=== PATIENT | female | born 1935 | race Caucasian/White ===

== ENCOUNTER 2018-01-25 15:53 | Inpatient (IN) | payer OTHER, MEDICARE ==
[~2018-01-25] VITALS: Ht 170.2 cm; Wt 69.9 kg
[~2018-01-25 15:53] MED LIST: ABILIFY 10 MG10 MG PO; ABILIFY2 MG PO; ABILIFY5 M1 PO; ARIPIPRAZOLE2 MG PO; ARIPIPRAZOLE5 M1 PO; ASPIRIN EC81 M1 PO; CALCIUM + D 6001 TAB PO; CALCIUM 600600 M1 PO; CARBIDOPA-LEVO1 EAC7 PO; CIPRO250 M1 PO; CIPRO500 M1 PO; QUETIAPINE FUMA25 M1 PO; SEROQUEL 25MG25 MG PO; SEROQUEL25 M1 PO; SULFAMETHOXAZO1 EAC1 PO
--- NOTE | 2018-01-25 17:11 | ED CARDIAC/CP/PALPITATIONS ---
History of Present Illness General Chief Complaint: Lower Extremity Problems Stated Complaint: BILATERAL LEG SWELLING,TROUBLE WALKING PER DAUGHTE Source: patient, family, old records Exam Limitations: no limitations Vital Signs & Intake/Output Vital Signs & Intake/Output Vital Signs Date Time Temp Pulse Resp B/P B/P Pulse O2 O2 Flow FiO2 Mean Ox Delivery Rate 01/25 2051 98 Nasal 2.0L Cannula 01/25 1946 97.5 89 22 190/88 99 Nasal 2.0L Cannula 01/25 1817 98.4 87 22 212/01/25 1754 87 98 Nasal 2.0L Cannula 01/25 1608 98.4 83 22 154/90 97 Room Air Allergies Coded Allergies: Milk Containing Products (SEVERELY LACTOSE INTOLERANT 01/25/18) lactose (Severe, EXTREME DIARRHEA 01/09/16) Reconcile Medications Acetaminophen 500 MG TABLET 2 TAB PO PRN PAIN (Reported) Aripiprazole 5 MG TABLET 1 TAB PO QHS MENTAL HEALTH (Reported) Aripiprazole 2 MG TABLET 1 TAB PO QHS MENTAL HEALTH (Reported) Aspirin (Ecotrin*) 81 MG TABLET.DR 1 TAB PO DAILY HEART/BLOOD (Reported) Calcium (Elemental-Fr Calcarb) (Calcium) (Unknown Strength) TABLET (Unknown Dose) PO DAILY SUPPLEMENT (Reported) Calcium Carbonate/Vitamin D3 (Calcium 500 + D Tablet) (Unknown Strength) TABLET (Unknown Dose) PO DAILY SUPPLEMENT (Reported) Carbidopa/Levodopa (Carbidopa-Levodopa 25-100 Tab) 25 MG-100 MG TABLET 2 TAB PO QAM PARKINSONS (Reported) Carbidopa/Levodopa (Carbidopa-Levodopa 25-100 Tab) 25 MG-100 MG TABLET 1 TAB PO BID PARKINSONS (Reported) Ibuprofen (Advil) 200 MG TABLET 4 TAB PO TID PRN PAIN/INFLAMMATION (Reported) Lactase (Dairy Digest) 9,000 UNIT TABLET 3 TAB PO AD PRN LACTOSE INTOLERANCE (Reported) Loperamide HCl (Loperamide) 2 MG CAPSULE 2 CAP PO PRN LOOSE STOOLS (Reported) Mirtazapine (Remeron) 15 MG TABLET 1 TAB PO QHS MENTAL HEALTH (Reported) Quetiapine Fumarate 25 MG TABLET 1 TAB PO QHS SLEEP/MENTAL HEALTH (Reported) Simethicone (Mytab Gas) 80 MG TAB.CHEW 1-2 TAB PO AD PRN FLATULENCE (Reported ) Triage Note: 82F ARRIVES WITH DAUGHTER WITH MULTIPLE COMPLAINTS, REPORTING ILEOSACRAL PAIN RADIATING DOWN THE LEGS AND TAKING ADVIL/TYLENOL WITHOUT RELIEF. REPORTS SOB AND MUSA. SIGNIFICANT BLE SWELLING, PITTING 1+ RELIEF. UNABLE TO STAND OR WALK NOW. REPORTS SOB AND MUSA, DENIES COUGH. SIGNIFICANT BLE SWELLING, PITTING 2+ Triage Nurses Notes Reviewed? yes Onset: Gradual Duration: getting worse Timing: recent history Radiation: no radiation HPI: Patient is a 82-year-old female past medical history of depression osteoarthritis, LE, PARKINSONS symptoms, carotid stenosis and multiple falls who presents emergency room with multiple complaints, patient does state that she's had multiple months and chronic history of right-sided leg pain been complaining OF A 7 DAY duration of worsening leg swelling and shortness of breath and dyspnea on exertion. 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 No (Pete Ibarra) Review of Systems Review of Systems Constitutional: Reports: no symptoms. EENTM: Reports: no symptoms. Respiratory: Reports: see HPI, short of breath. Cardiovascular: Reports: see HPI, peripheral edema. Denies: chest pain. GI: Reports: see HPI, abdominal pain. Genitourinary: Reports: no symptoms. Musculoskeletal: Reports: see HPI, joint pain, muscle pain. Skin: Reports: no symptoms. Neurological/Psychological: Reports: no symptoms. Hematologic/Endocrine: Reports: no symptoms. Immunologic/Allergic: Reports: no symptoms. All Other Systems: Reviewed and Negative (Pete Ibarra) Physical Exam Physical Exam General Appearance: mild distress Head: atraumatic Eyes: Bilateral: normal appearance. Ears, Nose, Throat: normal ENT inspection, hearing grossly normal Neck: normal inspection Respiratory: quiet respiration, decreased breath sounds Cardiovascular: regular rate/rhythm, systolic murmur Gastrointestinal: normal bowel sounds, soft, tenderness Extremities: normal range of motion, pedal edema Skin: intact Core Measures ACS in differential dx? Yes CVA/TIA Diagnosis No Sepsis Present: No Sepsis Focused Exam Completed? No (Pete Ibarra) Progress Differential Diagnosis: AMI, aortic dissection, atrial fibrillation, cholecystitis, CHF/pulm edema, costochondritis, hyperkalemia, hypovolemia, hyperthyroid, hyperventilation, intracranial hemorrhage, musculoskeletal pain, myocarditis, pancreatitis, pericarditis, pneumonia, pneumothorax, PSVT, pulmonary embolism, PUD/GERD, PVCs/PACs, respiratory failure, rib fracture, sepsis, unstable angina, V-fib/V-Tach, WPW syndrome Plan of Care: Orders Procedure Date/time Status CULTURE,URINE 01/26 2112 Active BLOOD CULTURE 01/26 2112 Active URINALYSIS 01/26 2112 Active Add-on Test (ER Only) 01/26 2020 Active RAPID VIRAL INFLUENZA A 01/26 2020 Active LOWER RESPIRATORY CULTURE 01/26 2020 Active Patient Data 01/25 2013 Active Admit to inpatient 01/26 2008 Active EKG 01/25 1819 Active Add-on Test (ER Only) 01/25 173 Active Add-on Test (ER Only) 01/25 1712 Active D-DIMER 01/25 1712 Complete PARTIAL THROMBOPLASTIN TIME 01/25 1637 Complete PROTHROMBIN TIME 01/25 1637 Complete LACTIC ACID 01/25 1637 Complete TROPONIN LEVEL 01/25 1610 Complete COMPREHENSIVE METABOLIC PANEL 01/25 161 Complete CBC WITHOUT DIFFERENTIAL 01/25 1610 Complete B-TYPE NATRIURETIC PEP (BNP) 01/25 1610 Complete EKG 01/25 1610 Active Current Medications Sig/Kaye Start time Last Medication Dose Stop Time Status Admin Azithromycin 500 MG ONCE ONE 01/25 2030 AC (Zithromax) 01/25 2129 Dextrose/Water 250 ML (D5W) Laboratory Tests 01/25/18 1739: PT Cancelled, INR Cancelled, APTT Cancelled 01/25/18 1637: Anion Gap 12, Estimated GFR > 60, BUN/Creatinine Ratio 36.3 H, Glucose 159 H, Lactic Acid 1.6, Calcium 8.9, Total Bilirubin 0.5, AST 28, ALT 18, Alkaline Phosphatase 156 H, Troponin I 1.10 *H, Gpb-O-Mfyypypyiud Pept 36242 H, Total Protein 7.0, Albumin 3.5, Globulin 3.5, Albumin/Globulin Ratio 1.0 L, PT 11.3, INR 1.04, APTT 28, D-Dimer High Sensitivty 2278 H, CBC w Diff NO MAN DIFF REQ, RBC 3.12 L, MCV 89.6, MCH 29.8, MCHC 33.3, RDW 14.7 H, MPV 8.7, Gran % 75.8 H , Lymphocytes % 16.5 L, Monocytes % 5.3, Eosinophils % 2.0, Basophils % 0.4, Absolute Granulocytes 8.1 H, Absolute Lymphocytes 1.8, Absolute Monocytes 0.6, Absolute Eosinophils 0.2, Absolute Basophils 0 Microbiology 01/26 2112 URINE ROUT: Urine Culture - ORD 01/26 2112 BLOOD: Blood Culture - ORD 01/26 2112 BLOOD: Blood Culture - ORD 01/26 2020 NASOPHARYN: Influenza Virus A & B Rapid Smear - ORD 01/26 2020 LOWER RESP: Respiratory Culture - ORD 01/26 2020 LOWER RESP: Gram Stain - ORD Patient on initial presentation was noted to be in mild distress however she was given morphine which improved her symptoms, Patient does have concerns initially of hypertensive urgency due to patient's blood pressure patient also has complaints of shortness of breath and dyspnea on exertion and CHF is of my differentials patient was given Lasix for concerns of leg swelling elevated BNP and interstitial edema, patient also has critical findings of elevated troponin at 1.1 and discussed admission with Dr. Ku who was aware patient CT scan results shows no indication of palmar embolism however does show patchy infiltrates for concerns of pneumonia patient was given azithromycin and Rocephin, patient's ultrasounds were resulted no DVT due to persistent elevated blood pressure and troponin that Dr. Santos advised patient to be admitted to the ICU. No heparin was advised upon admission by cardiology or primary care doctor. Discussed admission with patient and family members were aware Diagnostic Imaging: Viewed by Me: CT Scan, Ultrasound. Radiology Impression: SEE COMMENTS Initial ED EKG: MOTION ARTIFACT, 84 BPM,SINUS RHYTHM Comments: PATIENT: SINCERE MCPHERSON PRESENT AGE: 82 PATIENT ACCOUNT NO: [id number] : 37 LOCATION: [facility] ORDERING PHYSICIAN: Pete GREENE SERVICE DATE: 01/25/18 EXAM TYPE: US - US-EXT BILAT VENOUS DOPPLER EXAMINATION: US TRIPLEX OF LOWER EXTREMITIES, BILATERAL CLINICAL INFORMATION: Edema, swelling COMPARISON: None TECHNIQUE: Color-flow triplex imaging with spectral analysis and compression Doppler were performed on the lower extremities. FINDINGS: Respiratory variation, normal compression and augmented flow are noted throughout the lower extremities. The visualized common femoral vein, superficial femoral vein, profunda femoral vein, popliteal vein and midcalf peroneal and posterior tibial venous segments show no evidence of deep venous thrombosis. There is no Alejandre's cyst. IMPRESSION: Some limitation the popliteal fossae here due to limited patient mobility. No convincing evidence for DVT. No suspicious fluid collection DICTATED BY: Juan Jimenez MD DATE/TIME DICTATED:01/25/182022 SCHOOL BUS TECHNICIAN:BRITTANI DATE/TIME TRANSCRIBED:01/25/18 PATIENT: SINCERE MCPHERSON PRESENT AGE: 82 PATIENT ACCOUNT NO: [id number] : 37 LOCATION: [facility] ORDERING PHYSICIAN: Pete GREENE SERVICE DATE: 01/25/18 EXAM TYPE: CAT - CT ABD & PELVIS W IV CONTRAST; CTA CHEST-PULMONARY EMBOLISM EXAMINATION: INDICATION: ELEVATED D-DIMER WITH SHORTNESS OF BREATH AND PAIN EXAMINATION: CONTRAST ENHANCED CT OF THE ABDOMEN PELVIS. PRE AND POSTCONTRAST CT, CTA CHEST. IMAGE POSTPROCESSING IS PERFORMED AND THESE IMAGES ARE REVIEWED AT AN INDEPENDENT WORKSTATION. 100 ML OPTIRAY [address] IS MADE [address] THE ABDOMEN PELVIS DATED 10/11/2017. FINDINGS: CT CHEST: THERE IS NO FILLING DEFECT HERE TO SUGGEST A PULMONARY EMBOLISM. CENTRALLY THERE IS NO BULKY ADENOPATHY. IMAGING LUNG GREEN. RIGHT LUNG; ILL-DEFINED PATCHY OPACITY RIGHT UPPER LUNG AND RIGHT BASE CONSISTENT WITH AREAS OF INFILTRATE. NODULE AT THE RIGHT BASE. IMAGE 38. MEASURES 4 MM. NODULE ON IMAGE 29. MEASURES 5 MM. SMALL EFFUSION ON THE RIGHT. LEFT LUNG; TRACE LEFT EFFUSION. MINIMAL LEFT BASILAR ATELECTASIS. THERE IS BRONCHIAL WALL THICKENING HERE. UPPER ABDOMEN STATUS POST CHOLECYSTECTOMY. LIVER AND SPLEEN ARE COMPARABLE TO PREVIOUS. REGION OF THE PANCREAS COMPARABLE TO PREVIOUS. THERE IS EVIDENCE OF DUCTAL DILATATION. PATIENT IS STATUS POST CHOLECYSTECTOMY. MILDLY INCREASED DUCTAL PROMINENCE FROM PREVIOUS. 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 NO FREE FLUID. NO BULKY ADENOPATHY. THE BOWEL PATTERN IS NONOBSTRUCTING. THE AORTA IS CALCIFIED. NOT ANEURYSMAL. THE KIDNEYS ARE IN THE NEPHROGRAPHIC PHASE. IN THE PELVIS THERE IS NO FREE FLUID. PALMA CATHETER WITHIN THE BLADDER. BOWEL PATTERN IS WITHIN NORMAL LIMITS. THERE IS NO BULKY ADENOPATHY. THERE IS INCREASING COMPRESSION AT D12 FROM PREVIOUS. THERE IS FAIRLY GOOD PRESERVATION OF POSTERIOR HEIGHT BUT THERE IS SOME RETROPULSION OF BONE INTO THE CANAL BY APPROXIMATELY 5 MM IMPRESSION: NO FILLING DEFECT TO SUGGEST A PULMONARY EMBOLISM. Patchy areas of infiltrate right midlung and right base. Small effusion on the right. Trace effusion on left. Small nodularity on the right. Recommendation is noncontrast low-dose study in 6-9 months for continued evaluation In the abdomen pelvis Palma catheter within the bladder. No acute finding here. No suspicious fluid collection. Status post cholecystectomy. Prominent ductal system. Correlation recommended clinically. This is mildly increased from previous. If indicated consider MRCP. Ongoing compression at D12 with some retropulsion of bone into the region of the canal. Correlate clinically. MR if indicated. Coronary calcifications are noted DICTATED BY: Juan Jimenez MD DATE/TIME DICTATED:01/25/181999 SCHOOL BUS TECHNICIAN:BRITTANI DATE/TIME TRANSCRIBED:01/25/181999 PATIENT: SINCERE MCPHERSON PRESENT AGE: 82 PATIENT ACCOUNT NO: [id number] : 37 LOCATION: [facility] ORDERING PHYSICIAN: Pete GREENE SERVICE DATE: 01/25/18 EXAM TYPE: RAD - XRY-CHEST XRAY, SINGLE VIEW EXAMINATION:\H\ \N\XR CHEST CLINICAL INFORMATION: Shortness of breath COMPARISON: 04/25/2017 TECHNIQUE: Frontal view of the chest was obtained. FINDINGS: Overall increased interstitial pattern. Findings suggest interstitial edema. Probable trace effusions bilaterally. IMPRESSION: Findings are most consistent with interstitial edema. Trace effusions DICTATED BY: Juan Jimenez MD DATE/TIME DICTATED:01/25/181714 SCHOOL BUS TECHNICIAN:MONTANA DATE/TIME TRANSCRIBED:01/25/181714 (Ptee Ibarra) Departure Departure Disposition: STILL A PATIENT Condition: Guarded Clinical Impression Primary Impression: Hypertensive urgency Secondary Impressions: CHF (congestive heart failure), Elevated troponin, Pneumonia Referrals: Clint Cook MD (PCP/Family) Departure Forms: Customer Survey General Discharge Information Admission Note Spoke With: Clint Cook MD Documentation of Exam: Documentation of any treatments & extenuating circumstances including Concerns Regarding Discharge (functional status, medication knowledge or non-compliance, living conditions, etc.) that warrant an admission rather than observation: [ Patient requires ] (Pete Ibarra) PA/PERSONNEL COORDINATOR Co-Sign Statement Statement: ED Attending supervision documentation- [X] I saw and evaluated the patient. I have also reviewed all the pertinent lab results and diagnostic results. I agree with the findings and the plan of care as documented in the PA's/PERSONNEL COORDINATOR's documentation. [] I have reviewed the ED Record and agree with the PA's/PERSONNEL COORDINATOR's documentation. [] Additions or exceptions (if any) to the PAs/PERSONNEL COORDINATOR's note and plan are summarized below: [] I have seen and personally examined the patient and I agree with the PAs evaluation. She presents with lower extremity weakness and swelling. She has a positive troponin with nonspecific EKG changes. She has significant blood pressure elevation and will be admitted to the ICU for further care. (Juan Murcia DO) PA/PERSONNEL COORDINATOR Co-Sign Statement Statement: ED Attending supervision documentation- [x] I saw and evaluated the patient. I have also reviewed all the pertinent lab results and diagnostic results. I agree with the findings and the plan of care as documented in the PA's/PERSONNEL COORDINATOR's documentation. Pt's care turned over to me. 01/25/18, 21:14... well appearing in ED... benign exam... pt merits icu level monitoring for hypertensive urgency. [] I have reviewed the ED Record and agree with the PA's/PERSONNEL COORDINATOR's documentation. [] Additions or exceptions (if any) to the PAs/PERSONNEL COORDINATOR's note and plan are summarized below: [] (Noe FLOWER,Kayden Trujillo) Critical Care Note Critical Care Note Critical Care Time: 75-104 min (Pete Ibarra)
[2018-01-25 17:12] LABS: ABSOLUTE BASOPHIL COUNT 0 /CUMM (0.0-0.2); ABSOLUTE EOSINOPHIL COUNT 0.2 /CUMM (0.0-0.7); ABSOLUTE GRANULOCYTE CT 8.1 /CUMM (1.4-6.5); ABSOLUTE LYMPH COUNT 1.8 /CUMM (1.2-3.4); ABSOLUTE MONOCYTE COUNT 0.6 /CUMM (0.10-0.60); BASOPHIL % 0.4 % (0.0-2.0); GRANULOCYTE % 75.8 % (42.2-75.2); HEMATOCRIT 27.9 % (37-47); MEAN CORPUSCULAR HGB 29.8 PG (27.0-31.0); MEAN CORPUSCULAR HGB CONC 33.3 G/DL (33.0-37.0); MEAN CORPUSCULAR VOLUME 89.6 FL (81.0-99.0); MEAN PLATELET VOLUME 8.7 FL (7.4-10.4); PLATELET COUNT 354 /CUMM (130-400); RBC DISTRIBUTION WIDTH 14.7 % (11.5-14.5); RED BLOOD CELL CT 3.12 /CUMM (4.20-5.40); WHITE BLOOD CELL COUNT 10.7 /CUMM (4.8-10.8)
--- NOTE | 2018-01-25 17:19 | RADIOLOGY REPORT ---
EXAMINATION:\H\ \N\XR CHEST CLINICAL INFORMATION: Shortness of breath COMPARISON: 04/25/2017 TECHNIQUE: Frontal view of the chest was obtained. FINDINGS: Overall increased interstitial pattern. Findings suggest interstitial edema. Probable trace effusions bilaterally. IMPRESSION: Findings are most consistent with interstitial edema. Trace effusions
[2018-01-25 17:55] LABS: PT 11.3 SEC (9.4-12.5); PTT 28 SEC (25-37)
[2018-01-25] MEDS ORDERED: LOPERAMIDE2 M2 PO (18:23)
[2018-01-25] MEDS ORDERED: CALCIUM 500 +1 EAC5 PO (18:23)
[2018-01-25] MEDS ORDERED: REMERON15 M2 PO (18:24)
[2018-01-25] MEDS ORDERED: MYTAB GAS80 M1 PO (18:25)
[2018-01-25] MEDS ORDERED: DAIRY DIGES9000 UNI1 PO (18:25)
[2018-01-25] MEDS ORDERED: ADVIL200 M2 PO (18:27)
[2018-01-25] MEDS ORDERED: ACETAMINOPHEN500 M4 PO (18:27)
[2018-01-25] MEDS ORDERED: CALCIUM600 M3 PO (18:28)
--- NOTE | 2018-01-25 19:57 | Admission Certification ---
Admission Certification Certification Statement - As attending physician, I certify that at the time of - admission, based on clinical presentation, severity of - symptoms, need for further diagnostic testing and - therapeutic interventions, and risk of adverse outcomes - without in-hospital treatment, in my clinical assessment, - this patient requires an acute hospital stay for a minimum - of two nights or longer. I have also considered psychsocial - factors such as support system, advanced age, financial - issues, cognitive issues, and failed out-patient treatments, - past re-admission history, safety of patient, and lack of - compliance as applicable. Specific rationale supporting this admission is: Bilateral leg edema, difficulty walking, elevated troponin, EKG changes elevated d-dimer
--- NOTE | 2018-01-25 20:00 | PN- Att Addend ---
Attending Addendum Attending Brief Note 82-year-old white female having trouble walking. Daughter getting progressively worse originally she was using a cane than a walker the last 1 or 2 days hardly able to walk some leg edema no apparent chest pain comes to the ER in no respiratory distress, her blood pressure is high she has to leg edema maybe some EKG changes in the inferior leads, elevated troponin, elevated d-dimer elevated white count. Patient's chest x-ray showed some interstitial fluid. Patient had a CTA of the chest and leg ultrasounds the results are pending her cardiology was called for consult will admit and if necessary anticoagulate. Current Medications Sig/Kaye Start time Last Medication Dose Route Stop Time Status Admin Furosemide 0 .STK-MED ONE 01/25 1810 DC IV Furosemide 20 MG ONCE ONE 01/25 1745 DC 01/25 IV 01/25 1746 1800 Labetalol HCl 0 .STK-MED ONE 01/25 181 DC IV Labetalol HCl 10 MG ONCE ONE 01/25 1800 DC 01/25 IV 01/25 1801 1817 Morphine Sulfate 0 .STK-MED ONE 01/25 181 DC .ROUTE Morphine Sulfate 4 MG ONCE ONE 01/25 1745 DC 01/25 IV 01/25 174 1817 Laboratory Tests 01/25/18 1739: PT Cancelled, INR Cancelled, APTT Cancelled 01/25/18 1637: Anion Gap 12, Estimated GFR > 60, BUN/Creatinine Ratio 36.3 H, Glucose 159 H, Calcium 8.9, Total Bilirubin 0.5, AST 28, ALT 18, Alkaline Phosphatase 156 H, Troponin I 1.10 *H, Mlo-P-Ezcymxdeanz Pept 54701 H, Total Protein 7.0, Albumin 3.5, Globulin 3.5, Albumin/Globulin Ratio 1.0 L, PT 11.3, INR 1.04, APTT 28, D- Dimer High Sensitivty 2278 H, CBC w Diff NO MAN DIFF REQ, RBC 3.12 L, MCV 89.6 , MCH 29.8, MCHC 33.3, RDW 14.7 H, MPV 8.7, Gran % 75.8 H, Lymphocytes % 16.5 L, Monocytes % 5.3, Eosinophils % 2.0, Basophils % 0.4, Absolute Granulocytes 8.1 H, Absolute Lymphocytes 1.8, Absolute Monocytes 0.6, Absolute Eosinophils 0.2, Absolute Basophils 0 Vital Signs Date Time Temp Pulse Resp B/P B/P Pulse O2 O2 Flow FiO2 Mean Ox Delivery Rate 01/25 1946 97.5 89 22 190/88 99 Nasal 2.0L Cannula 01/25 181 98.4 87 22 212/92 01/25 1754 87 212 98 Nasal 2.0L Cannula 01/25 1608 98.4 83 22 154/90 97 Room Air
--- NOTE | 2018-01-25 20:15 | CT SCAN REPORT ---
EXAMINATION: INDICATION: ELEVATED D-DIMER WITH SHORTNESS OF BREATH AND PAIN EXAMINATION: CONTRAST ENHANCED CT OF THE ABDOMEN PELVIS. PRE AND POSTCONTRAST CT, CTA CHEST. IMAGE POSTPROCESSING IS PERFORMED AND THESE IMAGES ARE REVIEWED AT AN INDEPENDENT WORKSTATION. 100 ML OPTIRAY 300 COMPARISON IS MADE TO CT THE ABDOMEN PELVIS DATED 10/11/2017. FINDINGS: CT CHEST: THERE IS NO FILLING DEFECT HERE TO SUGGEST A PULMONARY EMBOLISM. CENTRALLY THERE IS NO BULKY ADENOPATHY. IMAGING LUNG GREEN. RIGHT LUNG; ILL-DEFINED PATCHY OPACITY RIGHT UPPER LUNG AND RIGHT BASE CONSISTENT WITH AREAS OF INFILTRATE. NODULE AT THE RIGHT BASE. IMAGE 38. MEASURES 4 MM. NODULE ON IMAGE 29. MEASURES 5 MM. SMALL EFFUSION ON THE RIGHT. LEFT LUNG; TRACE LEFT EFFUSION. MINIMAL LEFT BASILAR ATELECTASIS. THERE IS BRONCHIAL WALL THICKENING HERE. UPPER ABDOMEN STATUS POST CHOLECYSTECTOMY. LIVER AND SPLEEN ARE COMPARABLE TO PREVIOUS. REGION OF THE PANCREAS COMPARABLE TO PREVIOUS. THERE IS EVIDENCE OF DUCTAL DILATATION. PATIENT IS STATUS POST CHOLECYSTECTOMY. MILDLY INCREASED DUCTAL PROMINENCE FROM PREVIOUS. 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 NO FREE FLUID. NO BULKY ADENOPATHY. THE BOWEL PATTERN IS NONOBSTRUCTING. THE AORTA IS CALCIFIED. NOT ANEURYSMAL. THE KIDNEYS ARE IN THE NEPHROGRAPHIC PHASE. IN THE PELVIS THERE IS NO FREE FLUID. PALMA CATHETER WITHIN THE BLADDER. BOWEL PATTERN IS WITHIN NORMAL LIMITS. THERE IS NO BULKY ADENOPATHY. THERE IS INCREASING COMPRESSION AT D12 FROM PREVIOUS. THERE IS FAIRLY GOOD PRESERVATION OF POSTERIOR HEIGHT BUT THERE IS SOME RETROPULSION OF BONE INTO THE CANAL BY APPROXIMATELY 5 MM IMPRESSION: NO FILLING DEFECT TO SUGGEST A PULMONARY EMBOLISM. Patchy areas of infiltrate right midlung and right base. Small effusion on the right. Trace effusion on left. Small nodularity on the right. Recommendation is noncontrast low-dose study in 6-9 months for continued evaluation In the abdomen pelvis Palma catheter within the bladder. No acute finding here. No suspicious fluid collection. Status post cholecystectomy. Prominent ductal system. Correlation recommended clinically. This is mildly increased from previous. If indicated consider MRCP. Ongoing compression at D12 with some retropulsion of bone into the region of the canal. Correlate clinically. MR if indicated. Coronary calcifications are noted
--- NOTE | 2018-01-25 20:27 | ULTRASOUND REPORT ---
EXAMINATION: US TRIPLEX OF LOWER EXTREMITIES, BILATERAL CLINICAL INFORMATION: Edema, swelling COMPARISON: None TECHNIQUE: Color-flow triplex imaging with spectral analysis and compression Doppler were performed on the lower extremities. FINDINGS: Respiratory variation, normal compression and augmented flow are noted throughout the lower extremities. The visualized common femoral vein, superficial femoral vein, profunda femoral vein, popliteal vein and midcalf peroneal and posterior tibial venous segments show no evidence of deep venous thrombosis. There is no Alejandre's cyst. IMPRESSION: Some limitation the popliteal fossae here due to limited patient mobility. No convincing evidence for DVT. No suspicious fluid collection
--- NOTE | 2018-01-25 22:03 | History & Physical ---
See Addendum General Information and HPI History of Present Illness: 82 year old woman with past medical history of HFpEF, mild/mod Aortic stenosis, depression, anxiety, osteoarthritis, carotid stenosis, drug induced parkinsonianism, and multiple falls seen for evaluation of lower extremity swelling and shortness of breath. Patients family members are present during the interview and offer collateral information. They report that their family member has been moving slowly over the past several months. She was previously ambulating independently but has slowly progressed to cane, now using a walker. She "barely moves anymore". Over the past week she reports lower extremity pain and swelling that is new. She also admits to waking up several times over the past week with bandlike chest discomfort that is short lived and gone by morning. She does admit to some persistent mild shortness of breath. Otherwise she denies any fever, chills, headache, lightheadedness, dizziness, current chest pain, palpitations, orthopnea, nausea, vomiting, diarrhea. Allergies/Medications Allergies: Coded Allergies: Milk Containing Products (SEVERELY LACTOSE INTOLERANT 01/25/18) lactose (Severe, EXTREME DIARRHEA 01/09/16) Home Med list Acetaminophen 500 MG TABLET 2 TAB PO PRN PAIN (Reported) Aripiprazole 5 MG TABLET 1 TAB PO QHS MENTAL HEALTH (Reported) Aripiprazole 2 MG TABLET 1 TAB PO QHS MENTAL HEALTH (Reported) Aspirin (Ecotrin*) 81 MG TABLET.DR 1 TAB PO DAILY HEART/BLOOD (Reported) Calcium (Elemental-Fr Calcarb) (Calcium) (Unknown Strength) TABLET (Unknown Dose) PO DAILY SUPPLEMENT (Reported) Calcium Carbonate/Vitamin D3 (Calcium 500 + D Tablet) (Unknown Strength) TABLET (Unknown Dose) PO DAILY SUPPLEMENT (Reported) Carbidopa/Levodopa (Carbidopa-Levodopa 25-100 Tab) 25 MG-100 MG TABLET 2 TAB PO QAM PARKINSONS (Reported) Carbidopa/Levodopa (Carbidopa-Levodopa 25-100 Tab) 25 MG-100 MG TABLET 1 TAB PO BID PARKINSONS (Reported) Ibuprofen (Advil) 200 MG TABLET 4 TAB PO TID PRN PAIN/INFLAMMATION (Reported) Lactase (Dairy Digest) 9,000 UNIT TABLET 3 TAB PO AD PRN LACTOSE INTOLERANCE (Reported) Loperamide HCl (Loperamide) 2 MG CAPSULE 2 CAP PO PRN LOOSE STOOLS (Reported) Mirtazapine (Remeron) 15 MG TABLET 1 TAB PO QHS MENTAL HEALTH (Reported) Quetiapine Fumarate 25 MG TABLET 1 TAB PO QHS SLEEP/MENTAL HEALTH (Reported) Simethicone (Mytab Gas) 80 MG TAB.CHEW 1-2 TAB PO AD PRN FLATULENCE (Reported ) Past History Travel History Traveled to [place] past 21 day No Medical History Neurological: Parkinson's disease EENT: NONE Cardiovascular: NONE Respiratory: NONE Gastrointestinal: NONE Hepatic: NONE Renal: NONE Musculoskeletal: osteoarthritis Psychiatric: anxiety, depression Endocrine: NONE Blood Disorders: NONE Cancer(s): NONE 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 Ambulation: cane (ocassionally) IADLs Independent: shopping, housework, food prep, telephone, medication admin. Needs Assist: finances, transportation. Review of Systems Review of Systems Constitutional: Reports: see HPI. Exam & Diagnostic Data Last 24 Hrs of Vital Signs/I&O Vital Signs Date Time Temp Pulse Resp B/P B/P Pulse O2 O2 Flow FiO2 Mean Ox Delivery Rate 01/25 2257 97.9 75 18 160/75 96 Nasal 2.0L Cannula 01/25 2100 97.5 89 22 190/88 01/25 2051 98 Nasal 2.0L Cannula 01/25 1946 97.5 89 22 190/88 99 Nasal 2.0L Cannula 01/25 1817 98.4 87 22 212/92 01/25 1754 87 22 212/92 98 Nasal 2.0L Cannula 01/25 1608 98.4 83 22 154/90 97 Room Air Intake & Output 01/26 0800 01/26 0000 01/25 1600 Intake Total Output Total 1750 Balance -1750 Output, Urine 1750 Physical Exam General Appearance Alert, Oriented X3, Cooperative, No Acute Distress Skin No Rashes, No Breakdown, No Significant Lesion Skin Temp/Moisture Exam: Warm/Dry Sepsis Skin Exam (color): Normal for Ethnicity HEENT Atraumatic, PERRLA, EOMI, Mucous Membr. moist/pink Cardiovascular Regular Rate, 3/6 SHANON Lungs Normal Air Movement, diminished right lobe airflow with scatter rhonchi, no crackles Abdomen Normal Bowel Sounds, Soft, No Tenderness, No Hepatospenomegaly, No Masses Neurological Normal Speech, Strength at 5/5 X4 Ext, Normal Tone, Sensation Intact, Cranial Nerves 3-12 NL Extremities No Clubbing, No Cyanosis, Normal Pulses, 3+ bilateral lower extremity pitting edema with mild erythema Vascular Normal Pulses, Pulses Symmetrical Last 24 Hrs of Labs/Zeeshan: Laboratory Tests 01/25/182214: Troponin I 1.03 *H 01/25/182119: Urine Color YEL, Urine Clarity CLEAR, Urine pH 6.0, Ur Specific [place] 1.010, Urine Protein NEG, Urine Ketones NEG, Urine Nitrite NEG, Urine Bilirubin NEG, Urine Urobilinogen 0.2, Ur Leukocyte Esterase NEG, Ur Microscopic EXAM NOT REQUIRED, Urine Hemoglobin NEG, Urine Glucose NEG 01/25/18 1739: PT Cancelled, INR Cancelled, APTT Cancelled 01/25/18 1637: Anion Gap 12, Estimated GFR > 60, BUN/Creatinine Ratio 36.3 H, Glucose 159 H, Lactic Acid 1.6, Calcium 8.9, Total Bilirubin 0.5, AST 28, ALT 18, Alkaline Phosphatase 156 H, Troponin I 1.10 *H, Xfm-A-Rhlhxbpyyzl Pept 27689 H, Total Protein 7.0, Albumin 3.5, Globulin 3.5, Albumin/Globulin Ratio 1.0 L, PT 11.3, INR 1.04, APTT 28, D-Dimer High Sensitivty 2278 H, CBC w Diff NO MAN DIFF REQ, RBC 3.12 L, MCV 89.6, MCH 29.8, MCHC 33.3, RDW 14.7 H, MPV 8.7, Gran % 75.8 H , Lymphocytes % 16.5 L, Monocytes % 5.3, Eosinophils % 2.0, Basophils % 0.4, Absolute Granulocytes 8.1 H, Absolute Lymphocytes 1.8, Absolute Monocytes 0.6, Absolute Eosinophils 0.2, Absolute Basophils 0 Microbiology 01/25 2200 BLOOD: Blood Culture - RECD 01/25 2145 BLOOD: Blood Culture - RECD 01/25 2122 NASOPHARYN: Influenza Virus A & B Rapid Smear - COMP 01/26 2120 URINE ROUT: Urine Culture - RECD 01/26 2020 LOWER RESP: Respiratory Culture - ORD 01/26 2020 LOWER RESP: Gram Stain - ORD Assessment/Plan Assessment: 82 year old woman with multiple medical problems significant for HFpEF, Aortic stenosis, and parkinsonianism seen for evaluation of lower extremity swell and shortness of breath. ED Course -Vitals: Temp 97.5-98.4, HR 83-89, RR 22, SBP 154-212, O2 97-99% on 2.0L via NC -CBC: WBC 10.7, Hgb 9.3, Hct 27.9, Plt 354 -BMP: Na 144, K 3.9, Cl 106, CO2 26, BUN 29, Cr 0.8, AG 12, Glu 159 -LFT: WNL -Misc: Troponin I 1.10, BNP 11,900, DDimer 2278, INR 1.04, Lactic acid 1.6 -CXR: interstitial edema -LE Doppler: no DVT -CTA Chest / Abdomen / Pelvis: no VTE, right lung infiltrate, trace bilateral effusion -EKG: NSR without ST segment changes Patients shortness of breath and lower extremity swelling appear to be due to patients known diastolic heart failure with probably worsened aortic stenosis. She has a loud systolic ejection murmur; repeat echo is to be assessed. Elevated troponin is most likely due to demand ischemia, EKG is unremarkable and patient has no current chest pain. She is likely preload dependent and should not be aggressively diuresed. Her blood pressure has returned to acceptable range. There is concern for right lobe pneumonia on imaging for which she is being covered. Problem List -Community Acquire Pneumonia -Hypertensive urgency -HFpEF exacerbation -Mild/moderate Aortic Stenosis -Elevated troponin, likely demand -History of drug induced parkinsonianism -Depression / Anxiety -Carotid stenosis -Osteoarthritis Plan -Admit to telemetry -Monitor on telemetry -Strict I & Os, daily weights -TRC with Nebs PRN -Supplemental oxygen, goal > 92%, taper as tolerated -Avoid further preload reduction -No Heparin -Start Aspirin 81 mg PO Daily -Ceftriaxone 1 g IV Daily -Azithromycin 500 mg IV Daily -Cardiology consult with Dr Nice for troponin, HFpEF, -Blood/Urine/Sputum -Trend troponin / EKG until peak or three negative sets -Repeat echocardiogram -Pain control with acetaminophen -Heart Healthy Diet -DVT PPx with lovenox -FULL CODE As Ranked By This Provider Problem List: 1. Chest pain 2. Hypertensive urgency Core Measures/Misc (07/23) Acute Coronary Syndrome ACS Diagnosis: No Congestive Heart Failure Congestive Heart Failure Diagnosis Yes Last Known EF % 65 Cerebrovascular Accident CVA/TIA Diagnosis: No VTE (View Protocol) VTE Risk Factors Age>40 No Mechanical VTE Prophylaxis d/t N/A MechProphylax Ordered No VTE Pharm Prophylaxis d/t NA PharmProphylax ordered Sepsis (View protocol) Sepsis Present: No
[2018-01-26 00:30] VITALS: BP 130/62
[2018-01-26 05:38] LABS: ABSOLUTE BASOPHIL COUNT 0.1 /CUMM (0.0-0.2); ABSOLUTE EOSINOPHIL COUNT 0.4 /CUMM (0.0-0.7); ABSOLUTE GRANULOCYTE CT 5.1 /CUMM (1.4-6.5); ABSOLUTE MONOCYTE COUNT 0.5 /CUMM (0.10-0.60); BASOPHIL % 0.8 % (0.0-2.0); EOSINOPHIL % 5.1 % (0-5); GRANULOCYTE % 63.4 % (42.2-75.2); HEMATOCRIT 24.9 % (37-47); MEAN CORPUSCULAR HGB 29.9 PG (27.0-31.0); MEAN CORPUSCULAR HGB CONC 33.5 G/DL (33.0-37.0); MEAN CORPUSCULAR VOLUME 89.5 FL (81.0-99.0); MEAN PLATELET VOLUME 8.6 FL (7.4-10.4); PLATELET COUNT 306 /CUMM (130-400); RBC DISTRIBUTION WIDTH 14.6 % (11.5-14.5); RED BLOOD CELL CT 2.79 /CUMM (4.20-5.40); WHITE BLOOD CELL COUNT 8.1 /CUMM (4.8-10.8)
[2018-01-26 06:30] VITALS: BP 116/64
--- NOTE | 2018-01-26 07:25 | PN- Housestaff ---
See Addendum Subjective Follow-up For: Hypertensive emergency Elevated troponins Upper respiratory infection Subjective: Seen and examined Offers no complaints. Reports sleeping well. She did have hip and back pain. Review of Systems Constitutional: Reports: see HPI. Objective Last 24 Hrs of Vital Signs/I&O Vital Signs Date Time Temp Pulse Resp B/P B/P Pulse O2 O2 Flow FiO2 Mean Ox Delivery Rate 01/26 0100 95 Nasal 2.0L Cannula 01/26 0030 98.2 75 20 130/62 98 01/25 2257 97.9 75 18 160/75 96 Nasal 2.0L Cannula 01/25 2100 97.5 89 22 190/88 01/25 2051 98 Nasal 2.0L Cannula 01/25 1946 97.5 89 22 190/88 99 Nasal 2.0L Cannula 01/25 1817 98.4 87 22 212/92 01/25 1754 87 22 212/ 98 Nasal 2.0L Cannula 01/25 1608 98.4 83 22 154/90 97 Room Air Intake & Output 01/26 0800 01/26 0000 01/25 1600 Intake Total Output Total 1750 Balance -1750 Output, Urine 1750 Patient 64.41 kg Weight Weight Bed scale Measurement Method Physical Exam General Appearance: Alert, Cooperative, No Acute Distress Skin: No Rashes, No Breakdown Skin Temp/Moisture Exam: Warm/Dry HEENT: Atraumatic, PERRLA Neck: Supple, No JVD Cardiovascular: Normal S1, Normal S2, loud systolic murmur in aortic, pulmonic, tricuspid areas. Lungs: Clear to Auscultation, Normal Air Movement Abdomen: Normal Bowel Sounds, Soft, No Tenderness Neurological: Normal Speech, Normal Tone, Sensation Intact Extremities: No Clubbing, No Cyanosis Vascular: Normal Pulses Current Medications: Current Medications Sig/Kaye Start time Last Medication Dose Route Stop Time Status Admin Acetaminophen 1,000 MG Q6P PRN 01/25 2200 AC 01/26 IV 1303 Aripiprazole 5 MG QPM 01/26 2200 AC PO Aripiprazole 2 MG QPM 01/25 2230 AC 01/25 PO 2305 Aspirin 81 MG DAILY 01/26 1000 AC 01/26 PO 0839 Azithromycin 500 MG DAILY@2300 01/26 2300 CAN Dextrose/Water 250 ML IV Azithromycin 500 MG ONCE ONE 01/25 2030 DC 01/25 Dextrose/Water 250 ML IV 01/25 2129 225 Carbidopa/Levodopa 1 TAB 1400,1800 01/26 1409 AC PO Carbidopa/Levodopa 2 TAB QAM 01/26 1000 AC 01/26 PO 1139 Ceftriaxone Sodium 1,000 MG DAILY@2300 01/26 2300 CAN IV Ceftriaxone Sodium 0 .STK-MED ONE 01/25 2249 DC .ROUTE Ceftriaxone Sodium 1,000 MG ONCE ONE 01/25 2030 DC 01/25 IV 01/25 2031 2251 Cefuroxime Sodium 250 MG Q12 01/26 2200 AC PO Enalaprilat 0 .STK-MED ONE 01/25 2123 DC IV Enalaprilat 1.25 MG ONCE ONE 01/25 2030 DC 01/25 IV 01/25 2031 2100 Enoxaparin Sodium 40 MG DAILY 01/26 1000 AC 01/26 SC 0839 Furosemide 0 .STK-MED ONE 01/25 1810 DC IV Furosemide 20 MG ONCE ONE 01/25 1745 DC 01/25 IV 01/25 174 1800 Labetalol HCl 0 .STK-MED ONE 01/25 181 DC IV Labetalol HCl 10 MG ONCE ONE 01/25 1800 DC 01/25 IV 01/25 1801 1817 Mirtazapine 15 MG QPM 01/26 2200 AC PO Morphine Sulfate 0 .STK-MED ONE 01/25 181 DC .ROUTE Morphine Sulfate 4 MG ONCE ONE 01/25 1745 DC 01/25 IV 01/25 174 1817 Quetiapine Fumarate 25 MG QPM 01/25 2230 AC 01/25 PO 2305 Last 24 Hrs of Lab/Zeeshan Results Last 24 Hrs of Labs/Mics: Laboratory Tests 01/26/18 0445: Anion Gap 12, Estimated GFR > 60, BUN/Creatinine Ratio 24.4, Troponin I 0.77 *H, CBC w Diff NO MAN DIFF REQ, RBC 2.79 L, MCV 89.5, MCH 29.9, MCHC 33.5, RDW 14.6 H, MPV 8.6, Gran % 63.4, Lymphocytes % 24.3, Monocytes % 6.4, Eosinophils % 5.1 H, Basophils % 0.8, Absolute Granulocytes 5.1, Absolute Lymphocytes 2.0, Absolute Monocytes 0.5, Absolute Eosinophils 0.4, Absolute Basophils 0.1 01/25/182214: Troponin I 1.03 *H 01/25/182119: Urine Color YEL, Urine Clarity CLEAR, Urine pH 6.0, Ur Specific [place] 1.010, Urine Protein NEG, Urine Ketones NEG, Urine Nitrite NEG, Urine Bilirubin NEG, Urine Urobilinogen 0.2, Ur Leukocyte Esterase NEG, Ur Microscopic EXAM NOT REQUIRED, Urine Hemoglobin NEG, Urine Glucose NEG 01/25/18 1739: PT Cancelled, INR Cancelled, APTT Cancelled 01/25/18 1637: Anion Gap 12, Estimated GFR > 60, BUN/Creatinine Ratio 36.3 H, Glucose 159 H, Lactic Acid 1.6, Calcium 8.9, Total Bilirubin 0.5, AST 28, ALT 18, Alkaline Phosphatase 156 H, Troponin I 1.10 *H, Uhu-B-Xxywejtufvw Pept 61163 H, Total Protein 7.0, Albumin 3.5, Globulin 3.5, Albumin/Globulin Ratio 1.0 L, PT 11.3, INR 1.04, APTT 28, D-Dimer High Sensitivty 2278 H, CBC w Diff NO MAN DIFF REQ, RBC 3.12 L, MCV 89.6, MCH 29.8, MCHC 33.3, RDW 14.7 H, MPV 8.7, Gran % 75.8 H , Lymphocytes % 16.5 L, Monocytes % 5.3, Eosinophils % 2.0, Basophils % 0.4, Absolute Granulocytes 8.1 H, Absolute Lymphocytes 1.8, Absolute Monocytes 0.6, Absolute Eosinophils 0.2, Absolute Basophils 0 Microbiology 01/25 2200 BLOOD: Blood Culture - RES 01/25 2145 BLOOD: Blood Culture - RES 01/25 2122 NASOPHARYN: Influenza Virus A & B Rapid Smear - COMP 01/26 2120 URINE ROUT: Urine Culture - RES 01/26 2020 LOWER RESP: Respiratory Culture - CAN Cancelled: NO SAMPLE COLLECTTED 01/26 2020 LOWER RESP: Gram Stain - CAN Cancelled: NO SAMPLE COLLECTTED Assessment/Plan Assessment: Patient is a 82-year-old female with significant history of aortic stenosis, diastolic heart failure, osteoarthritis, lower extremity swelling, depression presented to [place] with difficulty in ambulation and progressive worsening dyspnea. Vital signs significant for blood pressure of 150/90 mmHg which got worse 212/90 mmHg, required 2 L of oxygen. Labs did show elevation in troponins without any acute EKG changes, elevated d-dimer. CTA ruled out PE, infiltrates on lungs. Intially admitted to ICU for concerns of Hypertensive emergency (high Blood pressure with elevated troponin). After receiving a dose of IV labetalol and IV enlaprilat - it returned to a reasonable range. Transfered to telemetry Hypertensive emergency Increased afterload leading to Elevated ProBNP and troponins. Trops trended down and she was asymtomatic, however CAD/wall motion abnormalities need to be ruled out with ECHO. Not officially diagnosed with HTN in the past. Consider CCB like amlodipine if blood pressure is elevated again also helps with demand. Cardiology consulted. Diastolic heart failure She did have with multiple regurgitations in the past. A single dose of fursemide 20mg given yesterday. Cotninue ASA 81mg daily. Not on any medications given preload dependent. Last ECHO with mild concentric LVH with pseudo normal filling. Trace regurgitation and IVC dilatation. Elevated pulmonary pressures 42mmHg. Ruled out PE with CT angio. Infiltrates on lung imaging Given upper respiratory symptoms recently and imaging findings of infiltrates, she was started on IV ceftriaxone and IV azithromycin for the benefit of doubt. we will start on oral ceftin for now. 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 Continue sinamet for now DVT prophylaxis SC lovenox Code status full code Pain management IV tylenol, Lidoderm patches -- OK for tramadol -- NO OPIATES Problem List: 1. CHF (congestive heart failure) 2. Elevated troponin 3. CHF (congestive heart failure) Pain Ratin Pain Location: hip pain, back pain Pain Goal: Pain 4 or less Pain Plan: tylenol prn Tomorrow's Labs & Rationales: bep
[2018-01-26 15:06] VITALS: BP 120/70
[2018-01-26 22:21] VITALS: BP 144/52
[2018-01-27 06:59] VITALS: BP 118/64
--- NOTE | 2018-01-27 08:28 | PN- Housestaff ---
Hayder FLOWER,Maryjo 01/27/18 0827: Subjective Follow-up For: Hypertensive emergency Elevated troponins Upper respiratory infection Tele-Events Since Last Visit: Normal sinus rhythm, 7080, PACs Subjective: Patient seen and examined at bedside, was having an echo this morning, reports no complaints Review of Systems Constitutional: Reports: see HPI. Objective Last 24 Hrs of Vital Signs/I&O Vital Signs Date Time Temp Pulse Resp B/P B/P Pulse O2 O2 Flow FiO2 Mean Ox Delivery Rate 01/27 0800 Nasal Cannula 01/27 0659 98.3 82 20 118/64 95 Nasal 2.0L Cannula 01/27 0000 Nasal 2.0L Cannula 01/26 2221 98.7 74 18 144/52 97 Nasal 2.0L Cannula 01/26 1600 97 Nasal 2.0L Cannula 01/26 1506 98.7 73 20 120/70 98 01/26 1453 Nasal 2.0L Cannula Intake & Output 01/27 1600 01/27 0800 01/27 0000 Intake Total 110 740 Output Total 650 1000 Balance -540 -260 Intake, IV 10 Intake, Oral 100 740 Number 1 0 Bowel Movements Output, Urine 650 1000 Patient 144 lb Weight Weight Bed scale Measurement Method Physical Exam General Appearance: Alert, Oriented X3, Cooperative, No Acute Distress HEENT: Atraumatic, PERRLA, EOMI, Mucous Membr. moist/pink Neck: Supple, No JVD Cardiovascular: Normal S1, SYSTOLIC MURMUR OVER TR, AR AND MR VALVES Lungs: Clear to Auscultation Abdomen: Normal Bowel Sounds, Soft, No Tenderness Neurological: Normal Speech, Strength at 5/5 X4 Ext, Normal Tone Extremities: No Clubbing, No Cyanosis Vascular: Normal Pulses Current Medications: Current Medications Sig/Kaye Start time Last Medication Dose Route Stop Time Status Admin Acetaminophen 1,000 MG Q6P PRN 01/25 2200 AC 01/27 IV 1123 Aripiprazole 5 MG QPM 01/26 2200 AC 01/26 PO 2153 Aripiprazole 2 MG QPM 01/25 2230 AC 01/26 PO 2153 Aspirin 81 MG DAILY 01/26 1000 AC 01/27 PO 0930 Azithromycin 500 MG DAILY@2300 01/26 2300 CAN Dextrose/Water 250 ML IV Carbidopa/Levodopa 1 TAB 1400,1800 01/26 1409 AC 01/26 PO 1718 Carbidopa/Levodopa 2 TAB QAM 01/26 1000 AC 01/27 PO 0930 Ceftriaxone Sodium 1,000 MG DAILY@2300 01/26 2300 CAN IV Cefuroxime Sodium 250 MG Q12 01/26 2200 AC 01/27 PO 0930 Enoxaparin Sodium 40 MG DAILY 01/26 1000 AC 01/27 SC 0931 Ibuprofen 200 MG Q6P PRN 01/26 1715 AC 01/26 PO 2155 Mirtazapine 15 MG QPM 01/26 2200 AC 01/26 PO 2153 Patient Medication 1 ED ONE ONE 01/26 1530 DC Teaching ED 01/26 1531 Quetiapine Fumarate 25 MG QPM 01/25 2230 AC 01/26 PO 215 Assessment/Plan Assessment: Patient is a 82-year-old female with significant history of aortic stenosis, diastolic heart failure, osteoarthritis, lower extremity swelling, depression presented to [place] with difficulty in ambulation and progressive worsening dyspnea. Vital signs significant for blood pressure of 150/90 mmHg which got worse 212/90 mmHg, required 2 L of oxygen. Labs did show elevation in troponins without any acute EKG changes, elevated d-dimer. CTA ruled out PE, infiltrates on lungs. Intially admitted to ICU for concerns of Hypertensive emergency (high Blood pressure with elevated troponin). After receiving a dose of IV labetalol and IV enlaprilat - it returned to a reasonable range. Hypertensive emergency Improved, blood pressure today is 118/64 Increased afterload leading to Elevated ProBNP and troponins. Trops trended down and she was asymtomatic, however CAD/wall motion abnormalities need to be ruled out with ECHO. Not officially diagnosed with HTN in the past. Consider CCB like amlodipine if blood pressure is elevated again also helps with demand. Cardiology consulted. Diastolic heart failure She did have with multiple regurgitations in the past. A single dose of fursemide 20mg given yesterday. Cotninue ASA 81mg daily. Not on any medications given preload dependent. Last ECHO with mild concentric LVH with pseudo normal filling. Trace regurgitation and IVC dilatation. Elevated pulmonary pressures 42mmHg. Ruled out PE with CT angio. Follow-up on echo results Infiltrates on lung imaging Given upper respiratory symptoms recently and imaging findings of infiltrates, she was started on IV ceftriaxone and IV azithromycin for the benefit of doubt. we will start on oral ceftin for now. 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 Continue sinamet for now DVT prophylaxis SC lovenox Code status full code Pain management IV tylenol, Lidoderm patches -- OK for tramadol -- NO OPIATES Problem List: 1. CHF (congestive heart failure) 2. Elevated troponin Pain Ratin Pain Location: HIP AND LOWEWR BACK Pain Goal: Pain 4 or less Pain Plan: PATHWAY Tomorrow's Labs & Rationales: CBC, BEP Kosta Brizuela MD 01/27/18 1332: Attending MD Review Statement Attending Statement Attending MD Statement: examined this patient, agreed w/resident/PA/PRESCRIPTIONIST, reviewed EMR data (avail), reviewed images, amended to note Attending Assessment/Plan: Mrs. Delatorre was interviewed and examined. Her EMR was reviewed. She is essentially without complaints. She denies fever, chills, and productive cough. She denies chest pains, palpitations, and dyspnea at rest. She notes stable orthopnea. She is afebrile. Telemetry shows sinus rhythm with a satisfactory rate. Her respirations are acceptable. Blood pressure is corrected to approximately 120 systolic. She is no acute distress. Pulmonary exam reveals lungs to be clear with equal breath sounds. Cardiac exam reveals regular rate and rhythm with history of 2/6 systolic ejection murmur. Her abdomen is soft and nontender. Her extremities are without edema. CBC shows a normal WBC with stable anemia. Her electrolytes and renal function are satisfactory. Troponin have continued to trend downward. Cultures continued to be negative. CTA is negative for PTE but does show areas of infiltration. -Continuing to follow her blood pressure which has corrected. -She is now on oral cefuroxime after initial treatment with intravenous ceftriaxone/azithromycin. She has areas of infiltration noted on her CTA. She has continued to be afebrile and without white count and has negative cultures. -We are continuing her other maintenance medications. -Echocardiogram and cardiology consult are pending.
[2018-01-27 14:58] VITALS: BP 122/58
--- NOTE | 2018-01-27 20:09 | Discharge Summary ---
See Addendum Visit Information Visit Dates Admission Date: 01/25/18 Discharge Date: 01/30/18 Hospital Course Course Attending Physician: Clint Cook MD Primary Care Physician: Clint Cook MD Consulting Request: Consulting Specialty: Cardiology Consulting Physician: Reason for Consult: Hypertensive emergency Hospital Course: Patient is a 82-year-old female with significant history of aortic stenosis, diastolic heart failure, osteoarthritis, lower extremity swelling, depression presented to [place] with difficulty in ambulation and progressive worsening dyspnea. Vital signs significant for blood pressure of 150/90 mmHg which got worse 212/90 mmHg, required 2 L of oxygen. Labs did show elevation in troponins without any acute EKG changes, elevated d-dimer. CTA ruled out PE, infiltrates on lungs. Intially admitted to ICU for concerns of Hypertensive emergency (high Blood pressure with elevated troponin). After receiving a dose of IV labetalol and IV enlaprilat - it returned to a reasonable range. Transfered to telemetry Hypertensive emergency Increased afterload leading to Elevated ProBNP and troponins. Trops trended down and she was asymtomatic, however CAD/wall motion abnormalities need to be ruled out with ECHO. Not officially diagnosed with HTN in the past. Her Blood pressure elevated after stabilization. Started on amlodipine 10mg daily. Diastolic heart failure She did have with multiple regurgitations in the past. A single dose of fursemide 20mg given yesterday. Cotninue ASA 81mg daily. Not on any medications given preload dependent. ECHO during this admission did show mild concentric hypertrophy of ventricle. Normal EF 65% with pseudonormal filling, Moderate , Mild Tricuspid regurgitation. Ruled out PE with CT angio. Atelectasis with trace left sided effusion Given upper respiratory symptoms recently and imaging findings of atelectasis with opacification she was started on IV ceftriaxone and IV azithromycin intially and converted to oral ceftin for a total of 7 days. -- completed 5 day course. Continue ceftin for 2 more days. Stop by 02/01/18 morning dose. 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 Continue sinamet for now Diarrhea She was on loperamide as home medication. Likely chronic. C.diff negative. DVT prophylaxis SC lovenox Code status full code Complications: NONE Allergies: Coded Allergies: Milk Containing Products (SEVERELY LACTOSE INTOLERANT 01/25/18) lactose (Severe, EXTREME DIARRHEA 01/09/16) Significant Procedures: venous doppler on 01/25/18 IMPRESSION: Some limitation the popliteal fossae here due to limited patient mobility. No convincing evidence for DVT. No suspicious fluid collection CXR on 01/25/18 IMPRESSION: Findings are most consistent with interstitial edema. Trace effusions EXAM TYPE: CAT - CT ABD & PELVIS W IV CONTRAST; CTA CHEST-PULMONARY EMBOLISM EXAMINATION: INDICATION: ELEVATED D-DIMER WITH SHORTNESS OF BREATH AND PAIN EXAMINATION: CONTRAST ENHANCED CT OF THE ABDOMEN PELVIS. PRE AND POSTCONTRAST CT, CTA CHEST. IMAGE POSTPROCESSING IS PERFORMED AND THESE IMAGES ARE REVIEWED AT AN INDEPENDENT WORKSTATION. 100 ML OPTIRAY [address] THE ABDOMEN PELVIS DATED 10/11/2017. FINDINGS: CT CHEST: THERE IS NO FILLING DEFECT HERE TO SUGGEST A PULMONARY EMBOLISM. CENTRALLY THERE IS NO BULKY ADENOPATHY. IMAGING LUNG GREEN. RIGHT LUNG; ILL-DEFINED PATCHY OPACITY RIGHT UPPER LUNG AND RIGHT BASE CONSISTENT WITH AREAS OF INFILTRATE. NODULE AT THE RIGHT BASE. IMAGE 38. MEASURES 4 MM. NODULE ON IMAGE 29. MEASURES 5 MM. SMALL EFFUSION ON THE RIGHT. LEFT LUNG; TRACE LEFT EFFUSION. MINIMAL LEFT BASILAR ATELECTASIS. THERE IS BRONCHIAL WALL THICKENING HERE. UPPER ABDOMEN STATUS POST CHOLECYSTECTOMY. LIVER AND SPLEEN ARE COMPARABLE TO PREVIOUS. REGION OF THE PANCREAS COMPARABLE TO PREVIOUS. THERE IS EVIDENCE OF DUCTAL DILATATION. PATIENT IS STATUS POST CHOLECYSTECTOMY. MILDLY INCREASED DUCTAL PROMINENCE FROM PREVIOUS. 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 NO FREE FLUID. NO BULKY ADENOPATHY. THE BOWEL PATTERN IS NONOBSTRUCTING. THE AORTA IS CALCIFIED. NOT ANEURYSMAL. THE KIDNEYS ARE IN THE NEPHROGRAPHIC PHASE. IN THE PELVIS THERE IS NO FREE FLUID. PALMA CATHETER WITHIN THE BLADDER. BOWEL PATTERN IS WITHIN NORMAL LIMITS. THERE IS NO BULKY ADENOPATHY. THERE IS INCREASING COMPRESSION AT D12 FROM PREVIOUS. THERE IS FAIRLY GOOD PRESERVATION OF POSTERIOR HEIGHT BUT THERE IS SOME RETROPULSION OF BONE INTO THE CANAL BY APPROXIMATELY 5 MM IMPRESSION: NO FILLING DEFECT TO SUGGEST A PULMONARY EMBOLISM. Patchy areas of infiltrate right midlung and right base. Small effusion on the right. Trace effusion on left. Small nodularity on the right. Recommendation is noncontrast low-dose study in 6-9 months for continued evaluation In the abdomen pelvis Palma catheter within the bladder. No acute finding here. No suspicious fluid collection. Status post cholecystectomy. Prominent ductal system. Correlation recommended clinically. This is mildly increased from previous. If indicated consider MRCP. Ongoing compression at D12 with some retropulsion of bone into the region of the canal. Correlate clinically. MR if indicated. Coronary calcifications are noted Pertinent Lab Results: as above Disposition Summary Disposition Principal Diagnosis: Hypertensive emergency Additional Diagnosis: Exacerbation of diastolic heart failure Parkinsonism Depression Diarrhea Discharge Disposition: SNF Discharge Instructions General Discharge Information Code Status: Full Code Patient's Diet: heart healthy diet Patient's Activity: as tolerated Follow-Up Instructions/Appts: Please follow up with your PCP in a week Please follow up with your Affiliate Marketing Coordinator in a week Medications at Discharge Discharge Medications: Continue taking these medications: Aspirin (Ecotrin*) 81 MG TABLET.DR 1 Tablet ORAL DAILY Quetiapine Fumarate (Quetiapine Fumarate) 25 MG TABLET 1 Tablet ORAL TAKE AT BEDTIME Qty = 60 Aripiprazole (Aripiprazole) 5 MG TABLET 1 Tablet ORAL TAKE AT BEDTIME Qty = 30 Aripiprazole (Aripiprazole) 2 MG TABLET 1 Tablet ORAL TAKE AT BEDTIME Qty = 30 Carbidopa/Levodopa (Carbidopa-Levodopa 25-100 Tab) 25 MG-100 MG TABLET 2 Tablet ORAL Every Morning Qty = 360 Carbidopa/Levodopa (Carbidopa-Levodopa 25-100 Tab) 25 MG-100 MG TABLET 1 Tablet ORAL TWICE DAILY Calcium Carbonate/Vitamin D3 (Calcium 500 + D Tablet) (Unknown Strength) TABLET Unknown Dose ORAL DAILY Loperamide HCl (Loperamide) 2 MG CAPSULE 2 Capsule ORAL as needed for LOOSE STOOLS Mirtazapine (Remeron) 15 MG TABLET 1 Tablet ORAL TAKE AT BEDTIME Qty = 30 Lactase (Dairy Digest) 9,000 UNIT TABLET 3 Tablet ORAL As Directed as needed for LACTOSE INTOLERANCE Simethicone (Mytab Gas) 80 MG TAB.CHEW 1-2 Tablet ORAL As Directed as needed for FLATULENCE Ibuprofen (Advil) 200 MG TABLET 4 Tablet ORAL THREE TIMES DAILY as needed for PAIN/INFLAMMATION Acetaminophen (Acetaminophen) 500 MG TABLET 2 Tablet ORAL as needed for PAIN Calcium (Elemental-Fr Calcarb) (Calcium) (Unknown Strength) TABLET Unknown Dose ORAL DAILY Start taking the following new medications: Amlodipine Besylate (Norvasc) 10 MG TABLET 1 Tablet ORAL DAILY Qty = 30 No Refills Copies To: [facility] FLOWER,Scot Brow[place]; Clint Cook MD Attending MD Review Statement Documenting Attending: Clint Cook MD
[2018-01-27 22:36] VITALS: BP 152/80
[2018-01-28 06:34] VITALS: BP 160/64
[2018-01-28 08:23] LABS: ABSOLUTE BASOPHIL COUNT 0.1 /CUMM (0.0-0.2); ABSOLUTE EOSINOPHIL COUNT 0.3 /CUMM (0.0-0.7); ABSOLUTE GRANULOCYTE CT 7.5 /CUMM (1.4-6.5); ABSOLUTE LYMPH COUNT 1.8 /CUMM (1.2-3.4); ABSOLUTE MONOCYTE COUNT 0.5 /CUMM (0.10-0.60); BASOPHIL % 0.6 % (0.0-2.0); GRANULOCYTE % 73.9 % (42.2-75.2); HEMATOCRIT 26.1 % (37-47); MEAN CORPUSCULAR HGB 30.2 PG (27.0-31.0); MEAN CORPUSCULAR HGB CONC 33.6 G/DL (33.0-37.0); MEAN PLATELET VOLUME 8.9 FL (7.4-10.4); PLATELET COUNT 323 /CUMM (130-400); RBC DISTRIBUTION WIDTH 14.4 % (11.5-14.5); WHITE BLOOD CELL COUNT 10.1 /CUMM (4.8-10.8)
[2018-01-28 13:57] VITALS: BP 152/70
[2018-01-28 14:25] VITALS: BP 136/66
--- NOTE | 2018-01-28 14:31 | PN- Att Addend ---
Attending Addendum Attending Brief Note Mrs. Case was interviewed and examined. Her EMR was reviewed. She notes some diarrhea but is otherwise without complaints. She remains afebrile with stable heart and respiratory rates. Blood pressure is mildly elevated at approximately 150 systolic. Telemetry shows sinus rhythm. She is napping but awakens easily and is in no distress. Pulmonary exam reveals equal breath sounds and is clear. Cardiac exam reveals a regular rate and rhythm with a 2/6 preparatory systolic ejection murmur. Her abdomen is soft and nontender. H&H is stable and WBC remains normal. Electrolytes and renal function are normal. All cultures are negative to date. C. difficile is also negative. Echocardiogram and cardiology consultation are still pending is still pending. -We are continuing cefuroxime acetyl for her possible pneumonitis. -We continue to monitor her heart rhythm and blood pressure which have remained stable -We are continuing her maintenance medications.
[2018-01-28] MEDS ORDERED: AMLODIPINE BESYL5 M1 PO (17:36)
--- NOTE | 2018-01-28 17:37 | Patient Discharge Instructions ---
Discharge Instructions General Discharge Information You were seen/treated for: Hypertensive emergency Diastolic heart failure Special Instructions: Please follow up with your PCP in a week Please follow up with your Boiler Welder in a week Diet Recommended Diet: Heart Healthy Activity Activity Self Limited: Yes Acute Coronary Syndrome Inclusion Criteria At DC or during hospital stay patient has or had the following: ACS DIAGNOSIS Yes Discharge Core Measures Meds if any: Prescribed or Continued at Discharge Aspirin Yes Statin Yes Meds if any: NOT Prescribed or Continued at Discharge Congestive Heart Failure Inclusion Criteria At DC or during hospital stay patient has or had the following: CHF DIAGNOSIS No Discharge Core Measures Meds if any: Prescribed or Continued at Discharge Meds if any: NOT Prescribed or Continued at Discharge Cerebrovascular accident Inclusion Criteria At DC or during hospital stay patient has or had the following: CVA/TIA Diagnosis No Discharge Core Measures Meds if any: Prescribed or Continued at Discharge Meds if any: NOT Prescribed or Continued at Discharge Venous thromboembolism Inclusion Criteria VTE Diagnosis No VTE Type NONE VTE Confirmed by (Test) NONE Discharge Core Measures - Per Current guidelines, there needs to be overlap - treatment for the first 5 days of Warfarin therapy. - If discharged on Warfarin prior to 5 days of - overlap therapy, the patient will need to be - assessed for post discharge needs including - *Post discharge parental anticoagulation - *Warfarin and/or parental anticoagulation education - *Follow up date to check INR post discharge At least 5 days overlap therapy as Inpatient No Meds if any: Prescribed or Continued at Discharge Note: Overlap Therapy is Warfarin and Anticoagulant Meds if any: NOT Prescribed or Continued at Discharge
[2018-01-28 22:51] VITALS: BP 140/70
[2018-01-29 07:02] VITALS: BP 144/70
--- NOTE | 2018-01-29 07:34 | PN- Housestaff ---
Subjective Follow-up For: Hypertensive emergency Elevated troponins Subjective: Seen and examined Offers no complaints. No overnight issues. Review of Systems Constitutional: Reports: see HPI. Comments: ROS negative except the above Objective Last 24 Hrs of Vital Signs/I&O Vital Signs Date Time Temp Pulse Resp B/P B/P Pulse O2 O2 Flow FiO2 Mean Ox Delivery Rate 01/29 0702 97.6 73 20 144/70 95 Room Air 01/29 0000 94 Nasal 2.0L Cannula 01/28 2251 98.2 71 20 140/70 97 Nasal Cannula 01/28 1425 98.1 71 20 136/66 96 Nasal Cannula 01/28 1358 67 152/70 01/28 1357 67 152/70 01/28 0800 Nasal 2.0L Cannula Intake & Output 01/29 0800 01/29 0000 01/28 1600 Intake Total 200 540 600 Output Total 700 500 Balance -500 540 100 Intake, IV 120 Intake, Oral 200 540 480 Number 3 Bowel Movements Output, Urine 700 500 Patient 70.307 kg Weight Weight Bed scale Measurement Method Physical Exam General Appearance: Alert, Oriented X3, Cooperative, No Acute Distress Skin: No Rashes, No Breakdown Skin Temp/Moisture Exam: Warm/Dry HEENT: Atraumatic, PERRLA, EOMI Neck: Supple, No JVD Cardiovascular: Normal S1, Normal S2, 3/6 systolic murmur present Lungs: Clear to Auscultation, Normal Air Movement Abdomen: Normal Bowel Sounds, Soft, No Tenderness Neurological: Normal Speech, Normal Tone, Sensation Intact Extremities: No Clubbing, No Cyanosis, No Edema Current Medications: Current Medications Sig/Kaye Start time Last Medication Dose Route Stop Time Status Admin Acetaminophen 1,000 MG Q6P PRN 01/25 2200 AC 01/29 IV 1618 Amlodipine Besylate 5 MG DAILY 01/28 1345 AC 01/29 PO 1001 Aripiprazole 5 MG QPM 01/26 2200 AC 01/28 PO 2019 Aripiprazole 2 MG QPM 01/25 2230 AC 01/28 PO 2018 Aspirin 81 MG DAILY 01/26 1000 AC 01/29 PO 1001 Carbidopa/Levodopa 1 TAB 1400,1800 01/26 1409 AC 01/29 PO 1417 Carbidopa/Levodopa 2 TAB QAM 01/26 1000 AC 01/29 PO 1001 Cefuroxime Sodium 250 MG Q12 01/26 2200 AC 01/29 PO 1001 Enoxaparin Sodium 40 MG DAILY 01/26 1000 AC 01/29 SC 1002 Ibuprofen 200 MG Q6P PRN 01/26 1715 AC 01/28 PO 2018 Loperamide HCl 2 MG DAILY 01/28 1400 DC 01/29 PO 1001 Mirtazapine 15 MG QPM 01/26 2200 AC 01/28 PO 2018 Quetiapine Fumarate 25 MG QPM 01/25 2230 AC 01/28 PO 2018 Assessment/Plan Assessment: Patient is a 82-year-old female with significant history of aortic stenosis, diastolic heart failure, osteoarthritis, lower extremity swelling, depression presented to [facility] with difficulty in ambulation and progressive worsening dyspnea. Vital signs significant for blood pressure of 150/90 mmHg which got worse 212/90 mmHg, required 2 L of oxygen. Labs did show elevation in troponins without any acute EKG changes, elevated d-dimer. CTA ruled out PE, infiltrates on lungs. Intially admitted to ICU for concerns of Hypertensive emergency (high Blood pressure with elevated troponin). After receiving a dose of IV labetalol and IV enlaprilat - it returned to a reasonable range. Transfered to telemetry Hypertensive emergency Increased afterload leading to Elevated ProBNP and troponins. Trops trended down and she was asymtomatic, however CAD/wall motion abnormalities need to be ruled out with ECHO. Not officially diagnosed with HTN in the past. Her Blood pressure elevated after stabilization. Started on amlodipine 5mg daily. Diastolic heart failure She did have with multiple regurgitations in the past. A single dose of fursemide 20mg given yesterday. Cotninue ASA 81mg daily. Not on any medications given preload dependent. Last ECHO with mild concentric LVH with pseudo normal filling. Trace regurgitation and IVC dilatation. Elevated pulmonary pressures 42mmHg. * Awaiting cardiology evaluation. Ruled out PE with CT angio. Atelectasis with trace left sided effusion Given upper respiratory symptoms recently and imaging findings of atelectasis, she was started on IV ceftriaxone and IV azithromycin intially and converted to oral ceftin for a total of 7 days. (02/10 today) 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 Continue sinamet for now Diarrhea She was on loperamide as home medication. Likely chronic. C.diff negative. DVT prophylaxis SC lovenox Code status full code Problem List: 1. CHF (congestive heart failure) 2. Elevated troponin 3. Hypertensive urgency Pain Ratin Pain Location: hip and back pain Pain Goal: Pain 4 or less Pain Plan: IV tylenol Tomorrow's Labs & Rationales: none
--- NOTE | 2018-01-29 09:50 | ECHOCARDIOGRAM REPORT ---
SINCERE MCPHERSON Age: 82 : 1935 Gender: F Exam Date: 01/27/2018 08:43 Exam Location: [address] Ht (in): 67 Wt (lb): 144 BSA: 1.76 BP: 118 / 64 Ordering Physician: Shai Lazo MD Referring Physician: Scot Ku MD Technologist: Rachel Kirk Room Number: 179-01 Indications: MURMUR/CLICK Rhythm: Sinus Technical Quality: Fair FINDINGS Left Ventricle Normal size left ventricle. Mild concentric left ventricular hypertrophy. No obvious regional wall motion abnormalities. Normal left ventricular ejection fraction visually estimated at >65%. "pseudonormal" filling pattern of the left ventricle for age (stage 2 diastolic dysfunction). Right Ventricle Normal right ventricular size and function. Right Atrium Normal right atrial size. Left Atrium Normal left atrial size. Mitral Valve Mild mitral annular calcification. Mitral valve mildly thickened. Mild mitral regurgitation. Aortic Valve Aortic valve not well visualized. Moderate aortic stenosis. No aortic regurgitation. Tricuspid Valve Structurally normal tricuspid valve. Mild tricuspid regurgitation. Moderate pulmonary hypertension. Right ventricular systolic pressure estimated to be elevated at 54 mmHg. Pulmonic Valve Pulmonic valve not well visualized. No pulmonic regurgitation. Pericardium No pericardial effusion. Great Vessels Normal size aortic root. CONCLUSIONS Normal size left ventricle. Mild concentric left ventricular hypertrophy. Normal left ventricular ejection fraction visually estimated at > 65%. "pseudonormal" filling pattern of the left ventricle for age (stage 2 diastolic dysfunction). Normal right ventricular size and function. Normal atrial size. Mild mitral regurgitation. Moderate aortic stenosis. Mild tricuspid regurgitation. Moderate pulmonary hypertension. Scot Ku M.D. (Electronically Signed) Final Date: 29 January 2018 09:49 MEASUREMENTS (Male / Female) Normal Values 2D ECHO LV Diastolic Diameter PLAX 4.2 cm 4.2 - 5.9 / 3.9 - 5.3 cm LV Systolic Diameter PLAX 3.2 cm 2.1 - 4.0 cm LV Fractional Shortening PLAX 23.8 % 25 - 46 % LV Ejection Fraction 2D Teich 47.9 % IVS Diastolic Thickness 1.1 cm LVPW Diastolic Thickness 1.0 cm LV Relative Wall Thickness 0.5 RV Internal Dim ED PLAX 2.4 cm 1.9 - 3.8 cm LVOT Diameter 1.9 cm LA Systolic Diameter LX 3.4 cm 3.0 - 4.0 / 2.7 - 3.8 cm LA Volume 31.0 cm 18 - 58 / 22 - 52 cm DOPPLER AV Peak Velocity 319.0 cm/s AV Peak Gradient 40.7 mmHg AV Mean Velocity 223.0 cm/s AV Mean Gradient 23.0 mmHg AV Velocity Time Integral 65.1 cm LVOT Peak Velocity 106.0 cm/s LVOT Peak Gradient 4.5 mmHg LVOT Mean Velocity 71.7 cm/s LVOT Mean Gradient 2.0 mmHg LVOT Velocity Time Integral 21.9 cm LVOT Stroke Volume 62.1 cm AV Area Cont Eq vti 1.0 cm AV Area Cont Eq pk 0.9 cm MV Peak Velocity 166.0 cm/s MV Peak Gradient 11.0 mmHg MV Mean Velocity 93.9 cm/s MV Mean Gradient 4.0 mmHg Mitral E Point Velocity 145.0 cm/s Mitral A Point Velocity 116.0 cm/s Mitral E to A Ratio 1.3 MV PHT Velocity 167.0 cm/s MV Deceleration Braxton 712.0 cm/s MV Pressure Half Time 70.4 ms MV Area PHT 3.1 cm MV Deceleration Time 232.0 ms TR Peak Velocity 332.0 cm/s TR Peak Gradient 44.1 mmHg Right Atrial Pressure 10.0 mmHg Pulmonary Artery Systolic Pressu 54.1 mmHg Right Ventricular Systolic Press 54.1 mmHg PV Peak Velocity 208.0 cm/s PV Peak Gradient 17.3 mmHg PV Mean Velocity 144.0 cm/s PV Mean Gradient 10.0 mmHg PV Velocity Time Integral 43.6 cm LV E' Lateral Velocity 11.2 cm/s Mitral E to LV E' Lateral Ratio 12.9 LV E' Septal Velocity 6.5 cm/s Mitral E to LV E' Septal Ratio 22.1
--- NOTE | 2018-01-29 11:06 | Cons- Cardiology ---
General Information and HPI Consulting Request Date of Consult: 01/29/18 Requested By: Clint Cook MD Reason for Consult: Poorly controlled hypertension. Source of Information: patient, old records Exam Limitations: poor historian History of Present Illness: Mrs. Jeana Case is an 82-year-old female with a history of hypertension, aortic stenosis, concentric left ventricular hypertrophy, diastolic dysfunction, pulmonary hypertension, pulmonary nodule, and Parkinson's disease, who presented to the ED with multiple complaints status post fall and who was found to have poorly controlled hypertension and a modest elevation in her troponin I. She has a history of dementia and is an unreliable historian, but denies any recent history of chest discomfort, palpitations, shortness of breath, PND, orthopnea, dry cough, syncope, near syncope, lightheadedness, dizziness, or claudication. She does admit to cramping of her legs while in bed at night on occasion. Allergies/Medications Allergies: Coded Allergies: Milk Containing Products (SEVERELY LACTOSE INTOLERANT 01/25/18) lactose (Severe, EXTREME DIARRHEA 01/09/16) Home Med List: Acetaminophen 500 MG TABLET 2 TAB PO PRN PAIN (Reported) Amlodipine Besylate 5 MG TABLET 1 TAB PO DAILY blood pressure Aripiprazole 5 MG TABLET 1 TAB PO QHS MENTAL HEALTH (Reported) Aripiprazole 2 MG TABLET 1 TAB PO QHS MENTAL HEALTH (Reported) Aspirin (Ecotrin*) 81 MG TABLET.DR 1 TAB PO DAILY HEART/BLOOD (Reported) Calcium (Elemental-Fr Calcarb) (Calcium) (Unknown Strength) TABLET (Unknown Dose) PO DAILY SUPPLEMENT (Reported) Calcium Carbonate/Vitamin D3 (Calcium 500 + D Tablet) (Unknown Strength) TABLET (Unknown Dose) PO DAILY SUPPLEMENT (Reported) Carbidopa/Levodopa (Carbidopa-Levodopa 25-100 Tab) 25 MG-100 MG TABLET 2 TAB PO QAM PARKINSONS (Reported) Carbidopa/Levodopa (Carbidopa-Levodopa 25-100 Tab) 25 MG-100 MG TABLET 1 TAB PO BID PARKINSONS (Reported) Ibuprofen (Advil) 200 MG TABLET 4 TAB PO TID PRN PAIN/INFLAMMATION (Reported) Lactase (Dairy Digest) 9,000 UNIT TABLET 3 TAB PO AD PRN LACTOSE INTOLERANCE (Reported) Loperamide HCl (Loperamide) 2 MG CAPSULE 2 CAP PO PRN LOOSE STOOLS (Reported) Mirtazapine (Remeron) 15 MG TABLET 1 TAB PO QHS MENTAL HEALTH (Reported) Quetiapine Fumarate 25 MG TABLET 1 TAB PO QHS SLEEP/MENTAL HEALTH (Reported) Simethicone (Mytab Gas) 80 MG TAB.CHEW 1-2 TAB PO AD PRN FLATULENCE (Reported ) Review of Systems Review of Systems: Attempted, but unreliable given her dementia. Past History Travel History Traveled to [place] past 21 day No Medical History Blood Transfusion Hx: No Neurological: Parkinson's disease EENT: NONE Cardiovascular: NONE Respiratory: NONE Gastrointestinal: NONE Hepatic: NONE Renal: NONE Musculoskeletal: osteoarthritis Psychiatric: anxiety, depression Endocrine: NONE Blood Disorders: NONE Cancer(s): NONE TOE STRIPPER/Reproductive: NONE Surgical History Surgical History: non-contributory Family History Relations & Conditions If Any: BROTHER FH: Parkinson's disease MOTHER FH: Parkinson's disease Relation not specified for: FH: myocardial infarction Psychosocial History Where Do You Live? Home Services at Home: None Smoking Status: Unknown If Ever Smoked Functional Ability ADLs Independent: dressing, eating, toileting, bathing. Ambulation: cane (ocassionally) IADLs Independent: shopping, housework, food prep, telephone, medication admin. Needs Assist: finances, transportation. Exam & Diagnostic Data Vital Signs and I&O Vital Signs Date Time Temp Pulse Resp B/P B/P Pulse O2 O2 Flow FiO2 Mean Ox Delivery Rate 01/29 1001 80 130/70 01/29 0702 97.6 73 20 144/70 95 Room Air 01/29 0000 94 Nasal 2.0L Cannula 01/28 2251 98.2 71 20 140/70 97 Nasal Cannula 01/28 1425 98.1 71 20 136/66 96 Nasal Cannula 01/28 1358 67 152/70 01/28 1357 67 152/70 Intake & Output 01/29 1600 01/29 0800 01/29 0000 01/28 1600 01/28 0800 01/28 0000 Intake Total 200 540 600 150 542 Output Total 700 500 900 400 Balance -500 540 100 -750 142 Intake, IV 120 Intake, Oral 200 540 480 150 542 Number 3 Bowel Movements Output, Urine 700 500 900 400 Patient 155 lb 155 lb Weight Weight Bed scale Bed scale Measurement Method Physical Exam: Well-developed, well-nourished elderly female no distress. Vital signs: See above. HEENT: Normocephalic, atraumatic, EOMI, moist because membranes. Neck: No JVD, transmitted systolic murmur versus bilateral bruits. Lungs: Clear to auscultation. Heart: S1, S2 (diminished) grade 2/6 systolic ejection type murmur best heard at the base. No gallop or rub. PMI fifth ICS at MCL. Abdomen: Soft, nontender, positive bowel sounds. Extremities: No edema. Labs/Zeeshan Results: Laboratory Tests 01/28 0635 Chemistry Sodium (137 - 145 mmol/L) 140 Potassium (3.5 - 5.1 mmol/L) 4.1 Chloride (98 - 107 mmol/L) 104 Carbon Dioxide (22 - 30 mmol/L) 26 Anion Gap (5 - 16) 10 BUN (7 - 17 mg/dL) 21 H Creatinine (0.5 - 1.0 mg/dL) 0.9 Estimated GFR (>60 ml/min) > 60 BUN/Creatinine Ratio (7 - 25 %) 23.3 Hematology CBC w Diff NO MAN DIFF REQ WBC (4.8 - 10.8 /CUMM) 10.1 RBC (4.20 - 5.40 /CUMM) 2.90 L Hgb (12.0 - 16.0 G/DL) 8.8 L Hct (37 - 47 %) 26.1 L MCV (81.0 - 99.0 FL) 90.0 MCH (27.0 - 31.0 PG) 30.2 MCHC (33.0 - 37.0 G/DL) 33.6 RDW (11.5 - 14.5 %) 14.4 Plt Count (130 - 400 /CUMM) 323 MPV (7.4 - 10.4 FL) 8.9 Gran % (42.2 - 75.2 %) 73.9 Lymphocytes % (20.5 - 51.1 %) 17.7 L Monocytes % (1.7 - 9.3 %) 4.8 Eosinophils % (0 - 5 %) 3.0 Basophils % (0.0 - 2.0 %) 0.6 Absolute Granulocytes (1.4 - 6.5 /CUMM) 7.5 H Absolute Lymphocytes (1.2 - 3.4 /CUMM) 1.8 Absolute Monocytes (0.10 - 0.60 /CUMM) 0.5 Absolute Eosinophils (0.0 - 0.7 /CUMM) 0.3 Absolute Basophils (0.0 - 0.2 /CUMM) 0.1 Diagnostic Data EKG Results 01/26/2018: Sinus rhythm, small inferior Q waves, ST segment depression in the anterolateral leads. CXR Results 01/25/2018: Findings are most consistent with interstitial edema. Trace effusions Other Results Echocardiogram 01/27/2018: Normal size left ventricle. Mild concentric left ventricular hypertrophy. Normal left ventricular ejection fraction visually estimated at >65%. "pseudonormal" filling pattern of the left ventricle for age (stage 2 diastolic dysfunction). Normal right ventricular size and function. Bilateral lower extremity ultrasound 01/25/2018: Some limitation the popliteal fossae here due to limited patient mobility. No convincing evidence for DVT. No suspicious fluid collection Normal atrial size. Mild mitral regurgitation. Moderate aortic stenosis. Mild tricuspid regurgitation. Moderate pulmonary hypertension. CT chest/abdomen/pelvis 01/25/2018: No filling defect to suggest a pulmonary embolism. Patchy areas of infiltrate right midlung and right base. Small effusion on the right. Trace effusion on left. Small nodularity on the right. Recommendation is noncontrast low-dose study in 6 -9 months for continued evaluation In the abdomen pelvis Hernández catheter within the bladder. No acute finding here. No suspicious fluid collection. Status post cholecystectomy. Prominent ductal system. Correlation recommended clinically. This is mildly increased from previous. If indicated consider MRCP. Ongoing compression at D12 with some retropulsion of bone into the region of the canal. Correlate clinically. MR if indicated. Coronary calcifications are noted Assessment/Plan Assessment/Plan [id number] w/ hx of HTN, , LVH, diastolic dysfunction, pulmonary HTN, pulmonary nodule, and Parkinson's disease who presented to the ED w/ multiple c/o s/p fall and who was found to have poorly controlled HTN and a modest elevation in her troponin I. Suspect that the elevation in her troponin I reflects a type II PA and not an ACS. Fortunately, her BP has come under acceptable control and she is otherwise clinically and hemodynamically stable. Recommendations: * Continue on telemetry. * Repeat CXR and diurese with IV furosemide 20 mg if evidence of HFpEF persists. * Blood pressure remains on the high side. Would increase amlodipine from 5 mg daily to 10 mg daily. * Follow-up pulmonary nodule on outpatient basis. * DVT prophylaxis. * Given her age and comorbidities including her dementia would follow a conservative course of management for her cardiovascular issues. Further recommendations will follow, Thank you. Consult Acknowledgment - Thank you for your consult request.
--- NOTE | 2018-01-29 11:08 | PN- Att Addend ---
Attending Addendum Attending Brief Note Events over the weekend noted, had some loose bowel movements. Still weak was seen by physical therapy and a suggestion short-term rehabilitation, her blood pressure still fluctuating was a little high yesterday was started on medications still monitoring will have cardiology check the patient today and after clearing will talk to the family to arrange for short-term rehabilitation. Intake & Output 01/29 1600 01/29 0400 01/28 1600 01/28 0400 01/27 1600 01/27 0400 Intake Total 200 540 750 542 880 740 Output Total 700 1886 170 7043 1000 Balance -500 540 -650 142 -670 -260 Intake, IV 120 120 Intake, Oral 200 540 630 542 760 740 Number 3 3 0 Bowel Movements Output, Urine 700 1664 657 7405 1000 Patient 155 lb 155 lb 144 lb Weight Weight Bed scale Bed scale Bed scale Measurement Method Current Medications Sig/Kaye Start time Last Medication Dose Route Stop Time Status Admin Acetaminophen 1,000 MG Q6P PRN 01/25 2200 AC 01/28 IV 1237 Amlodipine Besylate 5 MG DAILY 01/28 1345 AC 01/29 PO 1001 Aripiprazole 5 MG QPM 01/260 AC 01/28 PO 2019 Aripiprazole 2 MG QPM 01/25 2230 AC 01/28 PO 2018 Aspirin 81 MG DAILY 01/26 1000 AC 01/29 PO 1001 Carbidopa/Levodopa 1 TAB 1400,1800 01/26 1409 AC 01/28 PO 1725 Carbidopa/Levodopa 2 TAB QAM 01/26 1000 AC 01/29 PO 1001 Cefuroxime Sodium 250 MG Q12 01/26 2200 AC 01/29 PO 1001 Enoxaparin Sodium 40 MG DAILY 01/26 1000 AC 01/29 SC 1002 Ibuprofen 200 MG Q6P PRN 01/26 1715 AC 01/28 PO 2018 Loperamide HCl 2 MG DAILY 01/28 1400 AC 01/29 PO 1001 Mirtazapine 15 MG QPM 01/26 2200 AC 01/28 PO 2017 Quetiapine Fumarate 25 MG QPM 01/25 2230 AC 01/28 PO 2017 Laboratory Tests 01/28/18 0635: Anion Gap 10, Estimated GFR > 60, BUN/Creatinine Ratio 23.3, CBC w Diff NO MAN DIFF REQ, RBC 2.90 L, MCV 90.0, MCH 30.2, MCHC 33.6, RDW 14.4, MPV 8.9, Gran % 73.9, Lymphocytes % 17.7 L, Monocytes % 4.8, Eosinophils % 3.0, Basophils % 0.6 , Absolute Granulocytes 7.5 H, Absolute Lymphocytes 1.8, Absolute Monocytes 0.5 , Absolute Eosinophils 0.3, Absolute Basophils 0.1 Microbiology 01/27 1500 STOOL: Clostridium difficile Toxin A & B - COMP Microbiology 01/27 1500 STOOL: Clostridium difficile Toxin A & B - COMP Vital Signs Date Time Temp Pulse Resp B/P B/P Pulse O2 O2 Flow FiO2 Mean Ox Delivery Rate 01/29 1001 80 130/70 01/29 0702 97.6 73 20 144/70 95 Room Air 01/29 0000 94 Nasal 2.0L Cannula 01/28 2251 98.2 71 20 140/70 97 Nasal Cannula 01/28 1425 98.1 71 20 136/66 96 Nasal Cannula 01/28 1358 67 152/70 01/28 1357 67 152/70
[2018-01-29 15:35] VITALS: BP 114/58
[2018-01-29 21:45] VITALS: BP 108/50
--- NOTE | 2018-01-29 22:09 | RADIOLOGY REPORT ---
EXAMINATION: XR PORTABLE CHEST CLINICAL INFORMATION: Shortness of breath. CHF. COMPARISON: Chest radiography and CT 01/25/2018. TECHNIQUE: Portable frontal view of the chest was obtained. FINDINGS: No new significant abnormality is noted involving the heart, lungs, mediastinum, bony thorax or soft tissues. Aortic atherosclerotic calcification. IMPRESSION: No overt pulmonary edema or new pulmonary pathology demonstrated. The pleural effusions and mild adjacent basilar opacification on chest CT 01/25/2018 are not conspicuous on current exam.
[2018-01-30 06:44] VITALS: BP 150/70
--- NOTE | 2018-01-30 07:35 | PN- Housestaff ---
Subjective Follow-up For: Hypertensive emergency Elevated troponins Subjective: seen and examined She remains at baseline. Reports significant leg pain. A dose of tramadol given which helped her. No overngiht issues otherwise. Review of Systems Constitutional: Reports: see HPI. Comments: ROS negative except the above Objective Last 24 Hrs of Vital Signs/I&O Vital Signs Date Time Temp Pulse Resp B/P B/P Pulse O2 O2 Flow FiO2 Mean Ox Delivery Rate 01/30 0644 97.7 68 20 150/70 97 Room Air 01/29 2145 98.3 60 20 108/50 96 Room Air 01/29 1535 98.5 68 20 114/58 97 01/29 1001 80 130/70 Intake & Output 01/30 0800 01/30 0000 01/29 1600 Intake Total 350 240 400 Output Total 400 750 Balance -50 240 -350 Intake, IV 50 Intake, Oral 300 240 400 Output, Urine 400 750 Patient 69.853 kg Weight Weight Bed scale Measurement Method Physical Exam General Appearance: Alert, Oriented X3, Cooperative, No Acute Distress Skin: No Rashes, No Breakdown Skin Temp/Moisture Exam: Warm/Dry HEENT: Atraumatic, PERRLA, EOMI Neck: Supple Cardiovascular: Normal S1, Normal S2, systolic murmur present - 01/09 Lungs: Clear to Auscultation, Normal Air Movement Abdomen: Normal Bowel Sounds, Soft, No Tenderness Neurological: Normal Gait, Normal Speech Current Medications: Current Medications Sig/Kaye Start time Last Medication Dose Route Stop Time Status Admin Acetaminophen 1,000 MG Q6P PRN 01/25 2200 AC 01/30 IV 0346 Amlodipine Besylate 10 MG DAILY 01/30 1000 AC 01/30 PO 0838 Amlodipine Besylate 5 MG DAILY 01/28 1345 DC 01/29 PO 1001 Aripiprazole 5 MG QPM 01/26 2200 AC 01/29 PO 2142 Aripiprazole 2 MG QPM 01/25 2230 AC 01/29 PO 2143 Aspirin 81 MG DAILY 01/26 1000 AC 01/30 PO 0839 Carbidopa/Levodopa 1 TAB 1400,1800 01/26 1409 AC 01/29 PO 1755 Carbidopa/Levodopa 2 TAB QAM 01/26 1000 AC 01/30 PO 0839 Cefuroxime Sodium 250 MG Q12 01/260 AC 01/30 PO 0839 Enoxaparin Sodium 40 MG DAILY 01/26 1000 AC 01/30 SC 0839 Ibuprofen 400 MG .STK-MED ONE 01/29 2139 DC PO 01/29 2140 Ibuprofen 200 MG Q6P PRN 01/26 1715 AC 01/29 PO 2150 Loperamide HCl 2 MG DAILY 01/28 1400 DC 01/29 PO 1001 Mirtazapine 15 MG QPM 01/26 2200 AC 01/29 PO 2143 Quetiapine Fumarate 25 MG QPM 01/25 2230 AC 01/29 PO 2143 Tramadol HCl 25 MG ONCE ONE 01/30 0845 DC 01/30 PO 01/30 0846 0839 Assessment/Plan Assessment: Patient is a 82-year-old female with significant history of aortic stenosis, diastolic heart failure, osteoarthritis, lower extremity swelling, depression presented to [place] with difficulty in ambulation and progressive worsening dyspnea. Vital signs significant for blood pressure of 150/90 mmHg which got worse 212/90 mmHg, required 2 L of oxygen. Labs did show elevation in troponins without any acute EKG changes, elevated d-dimer. CTA ruled out PE, infiltrates on lungs. Intially admitted to ICU for concerns of Hypertensive emergency (high Blood pressure with elevated troponin). After receiving a dose of IV labetalol and IV enlaprilat - it returned to a reasonable range. Transfered to telemetry Hypertensive emergency Increased afterload leading to Elevated ProBNP and troponins. Trops trended down and she was asymtomatic, however CAD/wall motion abnormalities need to be ruled out with ECHO. Not officially diagnosed with HTN in the past. Her Blood pressure elevated after stabilization. Started on amlodipine 10mg daily. Diastolic heart failure She did have with multiple regurgitations in the past. A single dose of fursemide 20mg given yesterday. Cotninue ASA 81mg daily. Not on any medications given preload dependent. ECHO during this admission did show mild concentric hypertrophy of ventricle. Normal EF 65% with pseudonormal filling, Moderate , Mild Tricuspid regurgitation. Ruled out PE with CT angio. Atelectasis with trace left sided effusion Given upper respiratory symptoms recently and imaging findings of atelectasis with opacification she was started on IV ceftriaxone and IV azithromycin intially and converted to oral ceftin for a total of 7 days. -- completed 5 day course. Continue ceftin for 2 more days. Stop by 02/01/18 morning dose. 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 Continue sinamet for now Diarrhea She was on loperamide as home medication. Likely chronic. C.diff negative. DVT prophylaxis SC lovenox Code status full code Problem List: 1. Hypertensive urgency 2. Elevated troponin 3. CHF (congestive heart failure) Pain Ratin Pain Location: lower extremities Pain Goal: Pain 4 or less Pain Plan: Tylenol Tramadol and Monday in ruling out Tomorrow's Labs & Rationales: none
[2018-01-30] MEDS ORDERED: NORVASC10 M1 PO (09:27)
[2018-01-30] MEDS ORDERED: CEFUROXIME250 M1 PO (09:56)
--- NOTE | 2018-01-30 10:11 | PN- Att Addend ---
Attending Addendum Attending Brief Note No new issues patient still weak Vital signs are stable no fever. No new changes on physical patient will be going to short-term rehabilitation today and finished antibiotic therapy and I will follow the patient at [facility] home and see the [facility] discharge summary W 10, Intake & Output 01/30 1600 01/30 0400 01/29 1600 01/29 0400 01/28 1600 01/28 0400 Intake Total 350 240 600 540 750 542 Output Total 400 1450 1400 400 Balance -50 240 -850 540 -650 142 Intake, IV 50 120 Intake, Oral 300 240 600 540 630 542 Number 3 Bowel Movements Output, Urine 400 1450 1400 400 Patient 154 lb 155 lb 155 lb Weight Weight Bed scale Bed scale Bed scale Measurement Method Laboratory Tests 01/28/18 0635: Anion Gap 10, Estimated GFR > 60, BUN/Creatinine Ratio 23.3, CBC w Diff NO MAN DIFF REQ, RBC 2.90 L, MCV 90.0, MCH 30.2, MCHC 33.6, RDW 14.4, MPV 8.9, Gran % 73.9, Lymphocytes % 17.7 L, Monocytes % 4.8, Eosinophils % 3.0, Basophils % 0.6 , Absolute Granulocytes 7.5 H, Absolute Lymphocytes 1.8, Absolute Monocytes 0.5 , Absolute Eosinophils 0.3, Absolute Basophils 0.1 Microbiology 01/27 1500 STOOL: Clostridium difficile Toxin A & B - COMP Microbiology 01/27 1500 STOOL: Clostridium difficile Toxin A & B - COMP Vital Signs Date Time Temp Pulse Resp B/P B/P Pulse O2 O2 Flow FiO2 Mean Ox Delivery Rate 01/30 0838 68 150/70 01/30 0644 97.7 68 20 150/70 97 Room Air 01/29 2145 98.3 60 20 108/50 96 Room Air 01/29 1535 98.5 68 20 114/58 97
[2018-01-30 10:25] VITALS: BP 150/70
--- NOTE | 2018-01-30 11:01 | RADIOLOGY REPORT ---
EXAMINATION: XR PORTABLE CHEST CLINICAL INFORMATION: Shortness of breath. COMPARISON: Chest done on 01/29/2018. TECHNIQUE: Portable frontal view of the chest was obtained. FINDINGS: Hyperinflated lung field is present. Nonspecific airspace disease is noted at both lung bases, similar to prior study. Remainder of the lung matute are clear. The cardiomediastinal silhouette is within normal limit. There is no pleural effusion or pneumothorax present. The visualized upper abdomen is unremarkable. Overall no significant change. IMPRESSION: No acute cardiopulmonary disease, appears stable since 01/29/2018.
== END 2018-01-30 11:30 | DRG 281 ==
LOC: ERH 15:53 → 1NO 20:08 → ERHI 20:08 → ENRESERV 22:36 → 1NO 01-26 00:15 → ENPENDDIS 01-30 09:58 → 1NO 01-30 11:30
PROVIDERS: Emergency Medicine; Internal Medicine Interventional Cardiology; Physician Assistant; Student in an Organized Health Care Education/Training Program
DX: I11.0 Hypertensive heart disease with heart failure (principal); I21.A1 Myocardial infarction type 2; G21.19 Other drug induced secondary parkinsonism; G20 Parkinson's disease; I50.33 Acute on chronic diastolic (congestive) heart failure; I27.20 Pulmonary hypertension, unspecified; I65.29 Occlusion and stenosis of unspecified carotid artery; F03.90 Unspecified dementia, unspecified severity, without behavioral disturbance, psychotic disturbance, mood disturbance, and anxiety; I08.3 Combined rheumatic disorders of mitral, aortic and tricuspid valves; F32.9 Major depressive disorder, single episode, unspecified; F41.9 Anxiety disorder, unspecified; I16.0 Hypertensive urgency; J06.9 Acute upper respiratory infection, unspecified; M19.90 Unspecified osteoarthritis, unspecified site; K52.9 Noninfective gastroenteritis and colitis, unspecified; R91.1 Solitary pulmonary nodule; T50.905A Adverse effect of unspecified drugs, medicaments and biological substances, initial encounter; Z91.011 Allergy to milk products
CPT/HCPCS: 1NSP; ERO; 36592; 71045; 74177; 81003; 82436; 87040; 87070; 87086; 87804; 87804-59; 93005; 93010; 93306; 93970; 96374; 96375; 97110-GO; 97116-GO; 97161-GP; 97530-GO; 99291; J0131; J0456; J0696; J1650; J1940; J3490; J7060